=== PATIENT | female | born 1950 | race Caucasian/White ===

== ENCOUNTER 2016-09-08 13:40 | Inpatient (IN) | payer OTHER ==
[~2016-09-08] VITALS: Ht 154.9 cm; Wt 64.4 kg
--- NOTE | ~2016-09-08 | PR ---
[place], [place] PROGRESS NOTE NAME: ARACELI BOLAND UNIT #: [id number] ROOM: 314 DOCTOR: ABEL BROWN BIRTHDATE: [birth year] DOS: 09/13/2016 CHIEF COMPLAINT: "Good morning, I feel groggy. SUMMARY OF VISIT: The patient was assessed in the dining room where she was eating breakfast. Her first statement was that she feels groggy almost sedated. I asked if it felt like medication. She has told me that she could not distinguish between the 2. I did review her chart with her and I stated that we had increased her Remeron last night to help with depression and sleep issues and this might be what is going on. I offered to decrease it and she was agreeable to this. She said she felt better as far as being awake and alert on the lower dose. Denies any depression at this time. She is worried about her dogs and grandchildren. I told her that if the decrease works, I may be able to get her out as soon as tomorrow and she smiled and was agreeable with this. MENTAL STATUS: Alert and oriented to person, place, approximate time. There are some memory gaps. Mood is trending towards euthymic. Affect was appropriate. No overt signs of auditory or visual hallucinations, delusions, paranoia, lesia or hypomania. PLAN: We did bump up her Remeron last night to see if this will improve her overall disposition, but her main complaint was, I feel too groggy, too sedated, so I will back it back down to Remeron 15 mg at bedtime. We are going to maintain her Invega. She was loaded with Invega Sustenna 234 mg on September 10. Her second loading dose is due on the . We will make sure we discharge her with a script for this. We need to follow up with her case finishing machine adjuster to make her aware of the discharge plan and continuity of care. CHUCKIE BROWN CNP CM:PNTRANS [phone] ABEL BROWN 09/14/16 0004 interface
--- NOTE | ~2016-09-08 | PR ---
[place], [place] PROGRESS NOTE NAME: ARACELI BOLAND UNIT #: [id number] ROOM: 314 DOCTOR: WILDA KANG BIRTHDATE: [birth year] DOS: 09/10/2016 CHIEF COMPLAINT: "Something is not right with my medication." SUBJECTIVE: The patient was seen today. She was ambulating in the hallway. She seemed very fretful, had a lot of questions about her medication. She was asking about a medication she believed that her family doctor was going to start her on and currently, she is on Invega 6 mg by mouth. We will load her today with Invega Sustenna 234 mg in order to better manage her schizoaffective disorder. She is also requesting new housing. The social service is helping her to find something she says that she does not feel safe where she is, but she does report that while she is here, she feels safe. She is eating well and she is sleeping well. Wilda Kang NP CM:PNTRANS 1103 140 WILDA KANG 09/10/16 140 interface
--- NOTE | ~2016-09-08 | PR ---
[place], [place] PROGRESS NOTE NAME: ARACELI BOLAND UNIT #: [id number] ROOM: 314 DOCTOR: WILDA KANG BIRTHDATE: [birth year] DOS: CHIEF COMPLAINT: "Can I go home tomorrow?" SUMMARY OF THE VISIT: She was seen in her room, lying in the bed. She engaged readily in conversation and made eye contact. She says that she had a better night sleep last night and that she has a better appetite. She was kept up a little by another resident, who was a little rambunctious last night and she was frustrated by that. MENTAL STATUS EXAMINATION: As far as her mental status, she was alert and oriented. Her affect is appropriate. She was like as I said a little bit irritated over being kept awake last night. Her memory appears to be intact. PLAN: Our plan is to give her, her second loading dose of Invega Sustenna on 156 mg on 09/18/2016 and discharge to home whenever she is psychologically stable. In the meantime, we will engage her in individual and burciaga milieu. Wilda Kang NP CM:ALDAIR 3 12 WILDA KANG 09/11/161912 interface
--- NOTE | ~2016-09-08 | WRIGHTHP ---
[place], [place] PATIENT HISTORY AND PHYSICAL EXAM NAME: ARACELI BOLAND UNIT #: [id number] ROOM: 314 DOCTOR: ASHISH HANKINS MD BIRTHDATE: [birth year] DOS: 09/09/2016 INITIAL PSYCHIATRIC EVALUATION CHIEF COMPLAINT: "I'm just so afraid of those people, I'm afraid they are going to hurt me." HISTORY OF PRESENT ILLNESS: This is a 65-year-old white female, who presented to the emergency room complaining that she is very fearful and paranoid. The symptoms have been worsening over the last month. The patient states that there are multiple people in her neighborhood that she feels want to hurt her and kill her. She is uncertain why they are out to get her, but she is very certain that this is happening. The patient reports throughout the day and night, she will sometimes knock on neighbors' doors to seek assistance. She follows with Dr. Cm and Bhavna Waterman at his office and was encouraged to come to the emergency room to be further evaluated. She has a lengthy history of bipolar disorder and has been episodically noncompliant with her medications. She endorses poor sleep and appetite, anergia, anhedonia, hopeless and helpless feelings, crying spells, and inability to cope. PAST MEDICAL HISTORY: Remarkable for vitamin D deficiency, osteoporosis, GERD and the history of bipolar disorder versus schizoaffective disorder. MENTAL STATUS EXAMINATION: This morning, she is alert and oriented to person, place and time. Mood does seem to be overwhelmingly depressed with anxious overtones. She endorses significant paranoia and ideas of reference. She denies hearing voices, but does feel that she can tell people are out to get her. Memory seems relatively intact. DIAGNOSIS: Schizoaffective disorder. PLAN: I have started her on Remeron 15 mg at bedtime. She reports that she did have her best sleep in over a month last night with the use of this Remeron. I have likewise started her on Invega to address the psychotic symptoms. She did request that I put her back on her Klonopin 0.5 mg 2-3 times a day, which she had been taking for some time per her report and I will do this. We will engage her in individual and burciaga milieu activities. She does request the possibility of searching for alternative living situation, and I will have manager social services intervene here. We will return home when psychiatrically stable. [place], [place] PATIENT HISTORY AND PHYSICAL EXAM NAME: ARACELI BOLAND UNIT #: [id number] ROOM: [facility] DOCTOR: ASHISH HANKINS MD BIRTHDATE: [birth year] ASHISH HANKINS MD CM:HISPHYS:PATIENT HISTORY AND PHYSICAL EXAMINATION [phone] ASHISH HANKINS MD 09/09/16 0848 interface
--- NOTE | ~2016-09-08 | DS ---
[place], [place] DISCHARGE SUMMARY NAME: ARACELI BOLAND UNIT #: [id number] ROOM: 314 DOCTOR: ABEL BROWN BIRTHDATE: [birth year] DOS: 09/14/2016 HISTORY OF PRESENT ILLNESS: A 65-year-old female who presented to the Emergency Room complaining of fearfulness and paranoia, worsening over the last month and states that there are multiple people on her neighborhood that she feels are trying to hurt or kill her. Uncertain why they are out to get her and why certain things are happening. She reports throughout the day and night that someone would lock on her door to seek assistance. She follows with Dr. Toi Waterman in his office and was encouraged to come to the Emergency Room for further evaluation. She has a lengthy history of bipolar, episodically noncompliant with her medications. Endorses poor sleep, appetite, anergia, anhedonia, helplessness, hopeless feelings, crying spells, inability to cope. PAST MEDICAL HISTORY: Vitamin D deficiency, osteoporosis, GERD, history of bipolar versus schizoaffective disorder. HOSPITAL COURSE: We started her on Remeron 15 mg at bedtime not only to help with a little bit of her depression, but to stimulate her appetite and help her sleep. Her main complaint is poor sleep over the last month or so. We started her on Invega to address her psychotic systems, she responded well to this with a plan was to eventually switch her over to Invega Sustenna injections to make her more compliant. She requested that she be put back on her Klonopin, which she has been taking for quite a while. We went ahead and started this. She most likely will need to be weaned down on this eventually, but we started out at a low dose of 0.5 mg. The patient tolerated the p.o. Invega. It was stopped. She received her initial loading dose of Invega Sustenna of 234 mg, then her second loading dose of 156 mg IM is due on 09/16/2016 and then she will need continued maintenance dose of 117 mg q. month thereafter. MENTAL STATUS: She is alert and oriented to person, place, approximate time. There are no overt signs of auditory or visual hallucinations, delusions, paranoia, lesia or hypomania. Mood is euthymic. Affect is appropriate. DIAGNOSIS: Bipolar versus schizoaffective disorder. PLAN: The patient is being discharged to home. She is to follow up with Dr. Cm and his staff. She is currently on Remeron 15 mg at bedtime to help with depression, to stimulate her appetite, and aid in sleep. She is on Invega Sustenna. Her second loading dose is due on 09/16/2016 and then a month after that, she will have her maintenance dose of 117 mg every month. Klonopin 0.5 mg t.i.d. She is being discharged in stable condition. [place], [place] DISCHARGE SUMMARY NAME: ARACELI BOLAND UNIT #: [id number] ROOM: [facility] DOCTOR: ABEL BROWN BIRTHDATE: [birth year] CHUCKIE BROWN CNP CM:DISCHLIZ 1 33 ABEL BROWN 09/14/161933 interface
--- NOTE | ~2016-09-08 | PR ---
[place], [place] PROGRESS NOTE NAME: ARACELI BOLAND UNIT #: [id number] ROOM: 314 DOCTOR: ASHISH HANKINS MD BIRTHDATE: [birth year] DOS: 09/12/2016 CHIEF COMPLAINT: "I would like to go home soon." SUMMARY OF THE VISIT: The patient was interviewed in her room. She was sitting at the edge of her bed and engaged readily in conversation. She was fixated on going home stating that she really wanted to get home because her son has been taking care of her dogs and she is fearful that he cannot do this much longer. She did report that she is feeling slightly better and that her mood does seem to be improving and that the voices in her head seem to be lessening. She convincingly denies medication side effects. She is still though somewhat fragmented and disjointed in her thinking and derails easily from her conversation, but redirects herself well. MENTAL STATUS: She is alert and oriented with some time gaps. Mood does seem to be trending towards euthymia. Affect is more appropriate. There is no lesia or hypomania. There are no voiced auditory or visual hallucinations, delusions, or paranoia. Memory is relatively intact. PLAN: I will increase her Remeron from 15 to 22.5 mg at night to see if this will improve her overall disposition. Maintain her Invega. She was just loaded with Invega Sustenna 234 mg on September 10. She is due for her secondary loading dose here in a few days. She is to have her manager rn case come in today to visit her. I would like to get the manager rn case's input as to how close this is to the patient's baseline to determine discharge plans. We will continue to engage in individual and burciaga milieu activity with the plan to return home when stable. ASHISH HANKINS MD CM:PNTRANS 9 1 ASHISH HANKINS MD 09/12/16911 interface
[~2016-09-08 13:40] MED LIST: AMOXICILLIN500 MG PO; CIPROFLOXACIN500 MG PO; EFFEXOR XR150 M1 PO; FOSAMAX70 MG PO; KLONOPIN0.5 MG PO; MACROBID100 M1 PO; PERCOCET 325 MG1 TA5 PO; PRILOSEC20 MG PO; VICODIN 5/500 505 MG PO; VISTARIL25 M1 PO; VISTARIL25 MG PO; VITAMIN D1000 IU PO; WELLBUTRIN75 MG PO; ZYPREXA15 MG PO
[2016-09-08 13:44] VITALS: BP 130/79
[2016-09-08] MEDS ORDERED: CLARITIN10 MG PO (13:48)
[2016-09-08] MEDS ORDERED: VENLAFAXINE37.5 M1 PO (13:49)
[2016-09-08] MEDS ORDERED: OYSTER SHELL CA1 TA4 PO (13:49)
[2016-09-08] MEDS ORDERED: GOOD NEIGHBOR M25 MG PO (13:50)
[2016-09-08 14:14] LABS: BASO % 0.5 % (0.0-1.0); EOS # 0.2 10*3/uL (0.0-0.4); EOS % 1.9 % (1.0-4.0); HEMATOCRIT 41.9 % (37.0-47.0); HEMOGLOBIN 14.5 g/dl (12.0-16.0); LYMPH # 2.5 10*3/uL (1.3-4.4); LYMPH % 29.8 % (27.0-41.0); MEAN CORPUSCULAR HGB 29.8 pg (27.0-31.0); MEAN CORPUSCULAR HGB CONC 34.6 g/dl (33.0-37.0); MEAN PLATELET VOLUME 10.7 fl (9.6-12.3); MONO # 0.7 10*3/uL (0.1-1.0); MONO % 8.3 % (3.0-9.0); NEUT # 4.9 10*3/uL (2.3-7.9); NEUT % 59.3 % (47.0-73.0); PLATELET COUNT AUTOMATED 275 10*3/uL (130-400); RED BLOOD COUNT 4.87 10*6/uL (4.10-5.10); RED CELL DISTRI WIDTH 13.5 % (0-14.5); WHITE BLOOD COUNT 8.3 10*3/uL (4.8-10.8)
[2016-09-08 14:31] LABS: ALBUMIN 4.1 gm/dl (3.1-4.5); ALKALINE PHOSPHATASE 96 U/L (45-117); BILIRUBIN, TOTAL 0.4 mg/dl (0.2-1.0); BUN 8 mg/dl (7-24); CARBON DIOXIDE 27 mmol/L (21-32); CHLORIDE 107 mmol/L (98-107); EST GLOM FILT AFRICAN AMERICAN > 60 ml/min; GLUCOSE 102 mg/dL (65-99); POTASSIUM 3.7 mmol/L (3.5-5.1); SGOT/AST 19 IU/L (3-35); SGPT/ALT 28 U/L (12-78); SODIUM 140 mmol/L (136-145); TOTAL PROTEIN 7.7 gm/dL (6.4-8.2)
[2016-09-08 15:07] LABS: BILIRUBIN NEGATIVE (NEGATIVE); BLOOD NEGATIVE (NEGATIVE); CLARITY CLEAR (CLEAR); COLOR YELLOW (YELLOW); GLUCOSE NEGATIVE (NEGATIVE); KETONE TRACE (NEGATIVE); LEUKO ESTERASE 2+ (NEGATIVE); NITRITE NEGATIVE (NEGATIVE); PH 5.5 (5.0-9.0); PROTEIN NEGATIVE (NEGATIVE); SPECIFIC GRAVITY <= 1.005 (1.005-1.030); UROBILINOGEN 0.2 E.U./dl (0.2-1.0)
[2016-09-08 15:14] LABS: BACTERIA TRACE; MUCOUS TRACE
[2016-09-08 15:15] LABS: URINE REFLEX COMMENT YES (NO)
[2016-09-08 15:18] LABS: URINE AMPHETAMINES < 1000 (1000ng/ml); URINE BARBITURATES < 200 (200ng/ml); URINE COCAINE < 300 (300ng/ml)
[2016-09-08] MEDS ORDERED: TRAZODONE100 MG PO (18:30)
[2016-09-08] MEDS ORDERED: VRAYLAR3 MG PO (18:31)
[2016-09-08 19:52] VITALS: BP 110/50
[2016-09-08 20:05] LABS: FOLIC ACID 15.74 ng/mL (>5.38); VITAMIN D, 25-HYDROXY 24.9 ng/mL (30-100)
[2016-09-08] MEDS ORDERED: MONTELUKAST SOD10 MG PO (20:05)
[2016-09-08] MEDS ORDERED: INVEGA SUSTENN234 MG IM (20:06)
[2016-09-09 07:33] LABS: HEMOGLOBIN A1c 5.5 % (4.8-5.6)
[2016-09-09 07:49] VITALS: BP 104/65
[2016-09-09 19:35] VITALS: BP 126/80
[2016-09-10 19:14] VITALS: BP 107/71
[2016-09-11 07:50] VITALS: BP 109/66
[2016-09-11 19:30] VITALS: BP 105/60
[2016-09-12 08:44] VITALS: BP 120/80
[2016-09-12 20:00] VITALS: BP 109/66
[2016-09-13 08:01] VITALS: BP 131/84
[2016-09-13 20:00] VITALS: BP 120/78
[2016-09-14] MEDS ORDERED: CLONAZEPAM0.5 M2 PO (07:58)
[2016-09-14] MEDS ORDERED: MIRTAZAPINE15 M2 PO (07:58)
[2016-09-14] MEDS ORDERED: INVEGA SUSTENN156 MG IM (07:58)
[2016-09-14] MEDS ORDERED: VITAMIN D5000 I3 PO (07:58)
[2016-09-14 08:24] VITALS: BP 120/70
== END 2016-09-14 11:50 | disposition home or self-care (01) | DRG 885 ==
LOC: ED 13:40 → 3N 16:14
PROVIDERS: Hospitalist; Psychiatry & Neurology Psychiatry; Student in an Organized Health Care Education/Training Program
DX: F25.0 Schizoaffective disorder, bipolar type (principal); N30.00 Acute cystitis without hematuria; K21.9 Gastro-esophageal reflux disease without esophagitis; M81.0 Age-related osteoporosis without current pathological fracture; E55.9 Vitamin D deficiency, unspecified; Z90.49 Acquired absence of other specified parts of digestive tract; Z90.710 Acquired absence of both cervix and uterus; Z88.6 Allergy status to analgesic agent; Z88.2 Allergy status to sulfonamides; Z80.8 Family history of malignant neoplasm of other organs or systems; Z82.5 Family history of asthma and other chronic lower respiratory diseases; Z79.899 Other long term (current) drug therapy

== ENCOUNTER 2016-12-08 13:06 | Inpatient (IN) | payer MEDICAID ==
[~2016-12-08] VITALS: Ht 154.9 cm; Wt 69.6 kg
--- NOTE | ~2016-12-08 | PR ---
[place], [place] PROGRESS NOTE [id number] UNIT #: [id number] ROOM: 310 DOCTOR: Mikayla REINOSO,LAURO BIRTHDATE: [birth year] DOS: 12/10/2016 SUBJECTIVE: The patient seen and spoke with the staff. Per staff, the patient is still focused on medication, slept well. She was started on antibiotic by her primary care physician for UTI. The patient was pleasant and cooperative. She was in the room with the phone talking with her family. She said that she is doing good and feeling better. She is happy that she slept well last night. She did not express any problems or concerns. She is taking her medication regularly and did not have any side effect from the medication. MENTAL STATUS EXAMINATION: The patient was pleasant, cooperative. Described her mood as "okay." Affect, mood congruent. Thought process goal directed. No flight of ideas or loosening of association. She denied auditory or visual hallucination. No delusion or paranoia noted. She denied suicidal ideation, intent or plan. She also denied any homicidal ideation, intent or plan. Insight and judgment fair. ASSESSMENT: Schizoaffective disorder. PLAN: 1. Continue current medication and care. 2. Continue redirection. 3. Supportive care. LAURO REINOSO MD CM:PNTRANS [id number] Mikayla REINOSO 12/11/16 0141 interface
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
--- NOTE | ~2016-12-08 | PR ---
[place], [place] PROGRESS NOTE NAME: [id number] UNIT #: [id number] ROOM: 310 DOCTOR: Mikayla REINOSO,LAURO BIRTHDATE: [birth year] DOS: 12/11/2016 SUBJECTIVE: The patient seen and spoke with the staff. Per staff, the patient is doing well. No behavioral problems or issues, but comes to the station and asks for medication at times. The patient was pleasant and cooperative. She was in her room. She said that she is feeling better, asking when she can go home. Denied any problems or concerns. She asked me that since she is not the Klonopin if she will have any withdrawal symptoms or not. She reports good sleep and appetite. MENTAL STATUS EXAMINATION: The patient was pleasant and cooperative. Described her mood as "good." Affect, mood congruent. Thought process goal directed. No flight of ideas, loosening of association. She denied auditory or visual hallucination. No delusion or paranoia noted. She denies suicidal ideation, intent or plan. She also denied homicidal ideation, intent or plan. Insight and judgment fair. ASSESSMENT: Schizoaffective disorder. PLAN: 1. Continue current medication and care. 2. Continue redirection. 3. Encourage activity and groups. LAURO REINOSO MD CM:PNANA [id number] 1029 Mikayla REINOSO 12/11/16 1029 interface
--- NOTE | ~2016-12-08 | PR ---
[place], [place] PROGRESS NOTE NAME: ARACELI BOLAND UNIT #: [id number] ROOM: 310 DOCTOR: MIR FLANAGAN MD BIRTHDATE: [birth year] DOS: 12/11/2016 SUBJECTIVE: The patient has been admitted to the hospital with acute psychosis. She is feeling better today and she is comfortable. On investigation, she was found to have urinary tract infection and has been started on Macrobid 100 mg twice daily. The patient denies any pain. No fever, no chills. No nausea, no vomiting. OBJECTIVE: VITAL SIGNS: Her blood pressure today is 119/74, pulse 85, respirations 18, temperature 98.1. CHEST: Clear. HEART: Regular. ABDOMEN: Soft. No tenderness. The patient is ambulating and feeling fairly stable. MIR FLANAGAN MD CM:PNTRANS 1205 1317 MIR FLANAGAN MD 12/11/16 1317 interface
--- NOTE | ~2016-12-08 | PR ---
[place], [place] PROGRESS NOTE NAME: ARACELI BOLAND UNIT #: [id number] ROOM: 310 DOCTOR: MIR FLANAGAN MD BIRTHDATE: [birth year] DOS: 12/10/2016 SUBJECTIVE: The patient has been admitted to the psych unit with acute psychosis and we are following her for medical consultation. Her comprehensive profile is normal. Her C-reactive protein and troponin level is normal. Her CBC is normal. Her urine examination showed 2-4 wbc, 1+ leuk esterase indicating some urinary tract infection. The patient has past history of recurrent urinary tract infection and she has history of GERD syndrome, osteoporosis, vitamin D deficiency, depression and bipolar disorder. OBJECTIVE: VITAL SIGNS: Her blood pressure today is 116/78, pulse is 57, respiratory rate 20, temperature 98.4. CHEST: Clear. HEART: Regular. ABDOMEN: Soft. Her CT scan of the head was showing no intracranial bleed or any evidence of stroke or mass lesion. Chest x-ray is normal. MIR FLANAGAN MD CM:PNTRANS 0726 1005 MIR FLANAGAN MD 12/10/16 1005 interface
--- NOTE | ~2016-12-08 | PR ---
[place], [place] PROGRESS NOTE NAME: ARACELI BOLAND UNIT #: [id number] ROOM: 310 DOCTOR: MIR FLANAGAN MD BIRTHDATE: [birth year] DOS: 12/13/2016 SUBJECTIVE: The patient is admitted to Psych Unit with acute psychosis. She is having urinary tract infection, which is healing very satisfactorily. She denies any urinary symptoms or nausea. There is no pain in the abdomen. No nausea, no vomiting, no fever or chills. She is improving very good from medical point of view. OBJECTIVE: VITAL SIGNS: Her blood 117/80, pulse 90, respirations 18, temperature 97.9. MIR FLANAGAN MD CM:PNTRANS 0929 1036 MIR FLANAGAN MD 12/13/16 1535 interface
--- NOTE | ~2016-12-08 | PR ---
[place], [place] PROGRESS NOTE NAME: ARACELI BOLAND UNIT #: [id number] ROOM: 310 DOCTOR: MIR FLANAGAN MD BIRTHDATE: [birth year] DOS: 12/12/2016 The patient has been admitted through the psych floor with acute psychosis and depression. The patient was having urinary tract infection and is being treated for that and she is feeling much better now. She denies any pain in the abdomen. No nausea, no vomiting. Her blood culture is normal. Her urine culture did not grow any bacteria. Her blood pressure is 118/82, pulse 96, respirations 18, temperature 98.2. MIR FLANAGAN MD CM:PNTRANS 1208 1506 MIR FLANAGAN MD 12/12/16 1535 interface
--- NOTE | ~2016-12-08 | DS ---
[place], [place] DISCHARGE SUMMARY NAME: ARACELI BOLAND UNIT #: [id number] ROOM: 310 DOCTOR: ASHISH HANKINS MD BIRTHDATE: [birth year] DOS: 12/14/2016 CHIEF COMPLAINT: "I am just so anxious and depressed. I cannot go on like this." HISTORY OF PRESENT ILLNESS: This is a 66-year-old white female known to me from previous admissions here to the [facility]. She was admitted due to worsening depression with anxiety. The patient apparently had become increasingly more depressed with poor sleep and appetite, anergia, anhedonia, hopeless, helpless feelings, crying spells, and inability to cope. Additionally, her anxiety level while at home had been peaking, and she was very fearful of being by herself. She did call EMS, and they did bring her to the Emergency Room at [facility], where upon evaluation, the patient was deemed to be in such a state of depression that she represented a significant risk of harm to self. She was admitted to rule out organic factors and to stabilize on medication with the ultimate plan to return home when psychiatrically stable. PAST MEDICAL HISTORY: Remarkable for GERD, osteoporosis, vitamin D deficiency. SUMMARY OF HOSPITAL COURSE: The patient was admitted to the unit where she had her Invega Sustenna continued. Her Loxitane, however, was discontinued due to increased side effects from it, and instead Dr. Dumont started her on Seroquel 25 mg in the morning and 50 mg at night. Additionally, he discontinued her Klonopin because he felt that it was making her disoriented and confused and was not effectively dealing with her anxiety. He believed that the Seroquel would have an antianxiety component as well as helping augment the effectiveness of the Invega. She tolerated the Seroquel well, and it did give her positive benefits. The patient had been taking Remeron while at home at a dose of [address] Dumont increased this to 45 mg at bedtime in an effort to lessen the possibility of daytime somnolence. Again, she tolerated this medication adjustment well and gradually improved over the next several days. She voiced positive plans for the future and a readiness to return home. She convincingly denied suicidal thoughts, homicidal thoughts or any self-injurious thoughts as well as denying any medication side effects. The patient was discharged to return home on 12/14/2016. MENTAL STATUS AT DISCHARGE: The patient is alert and oriented to person, place, and time. Mood is fairly euthymic. Affect appropriate. Speech rate and pattern is within normal limits. There are no symptoms suggestive of hypomania or lesia. Likewise, there are no auditory or visual hallucinations. No delusions, no paranoia. Short, intermediate, and long-term memory are fully intact. DISCHARGE DIAGNOSIS: Schizoaffective disorder. PLAN: All of her prescriptions have been Escribed to [facility] in [place]. She will follow up at [facility]. She is due to receive her secondary loading dose of Invega Sustenna on 12/27/2016. [place], [place] DISCHARGE SUMMARY NAME: ARACELI BOLAND UNIT #: [id number] ROOM: 310 DOCTOR: ASHISH HANKINS MD BIRTHDATE: [birth year] ASHISH HANKINS MD CM:DISCHARG 0759 0840 ASHISH HANKINS MD 12/14/16 0840 interface
[~2016-12-08 13:06] MED LIST changes: +CLARITIN10 MG PO; +CLONAZEPAM0.5 M2 PO; +GOOD NEIGHBOR M25 MG PO; +INVEGA SUSTENN156 MG IM; +INVEGA SUSTENN234 MG IM; +MIRTAZAPINE15 M2 PO; +MONTELUKAST SOD10 MG PO; +OYSTER SHELL CA1 TA4 PO; +PRILOSEC20 M1 PO; -PRILOSEC20 MG PO; +TRAZODONE100 MG PO; +VENLAFAXINE37.5 M1 PO; +VITAMIN D5000 I3 PO; +VRAYLAR3 MG PO
[2016-12-08 13:20] VITALS: BP 129/80
[2016-12-08 13:45] LABS: BASO % 0.5 % (0.0-1.0); EOS # 0.1 10*3/uL (0.0-0.4); EOS % 0.7 % (1.0-4.0); HEMATOCRIT 39.2 % (37.0-47.0); HEMOGLOBIN 13.5 g/dl (12.0-16.0); LYMPH # 2.1 10*3/uL (1.3-4.4); LYMPH % 24.8 % (27.0-41.0); MEAN CELL VOLUME 87.7 fl (81.0-99.0); MEAN CORPUSCULAR HGB 30.2 pg (27.0-31.0); MEAN CORPUSCULAR HGB CONC 34.4 g/dl (33.0-37.0); MEAN PLATELET VOLUME 10.1 fl (9.6-12.3); MONO # 0.5 10*3/uL (0.1-1.0); MONO % 6.1 % (3.0-9.0); NEUT # 5.8 10*3/uL (2.3-7.9); NEUT % 67.7 % (47.0-73.0); PLATELET COUNT AUTOMATED 264 10*3/uL (130-400); RED BLOOD COUNT 4.47 10*6/uL (4.10-5.10); RED CELL DISTRI WIDTH 12.7 % (0-14.5); WHITE BLOOD COUNT 8.6 10*3/uL (4.8-10.8)
[2016-12-08 13:53] LABS: ACT PARTIAL THROMBO TIME 24.1 SECONDS (20.8-31.5); INTERNATIONAL NORM RATIO 0.9 (2.0-3.5)
[2016-12-08 13:59] VITALS: BP 130/73
[2016-12-08 14:00] LABS: ALBUMIN 3.9 gm/dl (3.1-4.5); ALKALINE PHOSPHATASE 100 U/L (45-117); BUN 10 mg/dl (7-24); CHLORIDE 103 mmol/L (98-107); CKMB 1.9 ng/ml (0.5-3.6); CPK 144 U/L (26-192); CREATININE 0.86 mg/dL (0.55-1.02); LIPASE 130 U/L (73-393); POTASSIUM 3.8 mmol/L (3.5-5.1); SGOT/AST 27 IU/L (3-35); SGPT/ALT 41 U/L (12-78); SODIUM 137 mmol/L (136-145); TOTAL PROTEIN 7.7 gm/dL (6.4-8.2); TROPONIN I < 0.015 ng/ml (<0.045)
[2016-12-08 14:09] LABS: BILIRUBIN NEGATIVE (NEGATIVE); BLOOD NEGATIVE (NEGATIVE); CLARITY CLEAR (CLEAR); COLOR YELLOW (YELLOW); GLUCOSE NEGATIVE (NEGATIVE); KETONE NEGATIVE (NEGATIVE); LEUKO ESTERASE 1+ (NEGATIVE); NITRITE NEGATIVE (NEGATIVE); PH 5.5 (5.0-9.0); UROBILINOGEN 0.2 E.U./dl (0.2-1.0)
[2016-12-08 14:22] LABS: BACTERIA TRACE
[2016-12-08 17:31] VITALS: BP 118/86
[2016-12-08] MEDS ORDERED: ATIVAN0.5 MG PO ×2 (19:50→19:52)
[2016-12-08] MEDS ORDERED: VITAMIN D5000 UNI1 PO (19:58)
[2016-12-08] MEDS ORDERED: LOXAPINE10 MG PO (20:00)
[2016-12-08] MEDS ORDERED: MIRTAZAPINE30 M2 PO (20:02)
[2016-12-08] MEDS ORDERED: KLONOPIN0.5 MG PO (20:05)
[2016-12-08 21:30] VITALS: BP 120/83
[2016-12-08 22:00] VITALS: BP 120/83
[2016-12-09 08:06] VITALS: BP 118/66
[2016-12-09] MEDS ORDERED: INVEGA SUSTENN234 MG IM (12:54)
[2016-12-09] MEDS ORDERED: OYSTER SHELL C1 EAC2 PO (19:12)
[2016-12-09 20:07] VITALS: BP 116/70
[2016-12-10 08:04] VITALS: BP 113/76
[2016-12-10 19:54] VITALS: BP 123/75
[2016-12-11 07:56] VITALS: BP 119/74
[2016-12-11 19:48] VITALS: BP 123/76
[2016-12-12 07:59] VITALS: BP 118/82
[2016-12-12 19:59] VITALS: BP 127/74
[2016-12-13 09:21] VITALS: BP 117/80
[2016-12-13 20:00] VITALS: BP 116/82
[2016-12-14] MEDS ORDERED: QUETIAPINE FUMA50 M1 PO (07:44)
[2016-12-14] MEDS ORDERED: QUETIAPINE FUMA25 MG PO (07:44)
[2016-12-14] MEDS ORDERED: MIRTAZAPINE45 MG PO (07:44)
[2016-12-14 07:49] VITALS: BP 122/78
[2016-12-14] MEDS ORDERED: INVEGA SUSTENN156 MG IM (07:54)
[2016-12-14] MEDS ORDERED: MACROBID100 M1 PO (10:29)
== END 2016-12-14 11:40 | disposition home or self-care (01) | DRG 885 ==
LOC: ED 13:06 → EDHOLD 18:38 → 3N 18:38
PROVIDERS: Emergency Medicine; ADMIT Psychiatry & Neurology Psychiatry
DX: F25.9 Schizoaffective disorder, unspecified (principal); F23 Brief psychotic disorder; K25.9 Gastric ulcer, unspecified as acute or chronic, without hemorrhage or perforation; N39.0 Urinary tract infection, site not specified; K21.9 Gastro-esophageal reflux disease without esophagitis; M81.0 Age-related osteoporosis without current pathological fracture; F41.9 Anxiety disorder, unspecified; R73.9 Hyperglycemia, unspecified; E66.3 Overweight; F31.9 Bipolar disorder, unspecified; E55.9 Vitamin D deficiency, unspecified; Z90.710 Acquired absence of both cervix and uterus; Z90.49 Acquired absence of other specified parts of digestive tract; Z80.9 Family history of malignant neoplasm, unspecified; Z83.6 Family history of other diseases of the respiratory system; Z88.6 Allergy status to analgesic agent; Z88.2 Allergy status to sulfonamides; Z79.899 Other long term (current) drug therapy; Z68.28 Body mass index [BMI] 28.0-28.9, adult

== ENCOUNTER → 2017-07-05 | Outpatient (CLI) | payer MEDICAID ==
[~2017-07-05] MED LIST changes: +ATIVAN0.5 MG PO; +LOXAPINE10 MG PO; +MIRTAZAPINE30 M2 PO; +MIRTAZAPINE45 MG PO; +OYSTER SHELL C1 EAC2 PO; +QUETIAPINE FUMA25 MG PO; +QUETIAPINE FUMA50 M1 PO; +VITAMIN D5000 UNI1 PO
== END | disposition home or self-care (01) ==
LOC: RAD 11:30
DX: Z13.820 Encounter for screening for osteoporosis (principal); M81.0 Age-related osteoporosis without current pathological fracture; N95.9 Unspecified menopausal and perimenopausal disorder

== ENCOUNTER 2018-01-31 10:04 | Inpatient (IN) | payer MEDICAID ==
[~2018-01-31] VITALS: Ht 154.9 cm; Wt 69.9 kg
--- NOTE | ~2018-01-31 | PR ---
[place], [place] PROGRESS NOTE NAME: ARACELI BOLAND UNIT #: [id number] ROOM: 314 DOCTOR: ASHISH HANKINS MD BIRTHDATE: [birth year] DOS: 02/08/2018 CHIEF COMPLAINT: "That new medicine really works, I feel better." SUMMARY OF THE VISIT: The patient was interviewed as she was engaging in activity in the dining area. She smiled as I approached. She looked clear and much more goal directed in her speech. The anxiety that was present so much the last several days seems to have dissipated. She was very positive in stating that she feels much better with the new medication that has been added, much clear and no longer sedate or dizzy. She reports no side effects from the new medication. MENTAL STATUS: She is alert and oriented. Mood does seem to be strongly trending towards euthymia now. Affect is much more appropriate. There is no lesia or hypomania. There are no gross psychotic symptoms. Short term memory has some mild gaps, otherwise she is intact. PLAN: I will maintain the dose of Stelazine at 1.25 mg twice daily, monitor and support, engage in individual and burciaga milieu activity, returning to the least restrictive environment when psychiatrically stable. ASHISH HANKINS MD CM:PNTRANS [id number] ASHISH HANKINS MD 02/08/18 1220 interface
--- NOTE | ~2018-01-31 | CON ---
[place], [place] REPORT OF CONSULTATION NAME: ARACELI BOLAND UNIT #: [id number] ROOM: 314 DOCTOR: JANETTE ANNE MD BIRTHDATE: [birth year] DOS: 02/01/2018 CHIEF COMPLAINT: The patient was admitted under Dr. Darian Gambino for anxiety and confusion. We were consulted for medical management. HISTORY OF PRESENT ILLNESS: This is a 67-year-old patient who came to ER with chief complaint of worsening of depression, confusion and anxiety, which was going on for last 3-4 months during which time she was disoriented, confused and had no energy. She has lost 10 pounds and has not been eating much. She was also found to be noncompliant with psychotropic medication. The patient was admitted under Dr. Gambino to stabilize on medications. I was consulted today and I saw and examined the patient. The patient was walking in the hallway and when I visited the psych unit, the patient is not having any chest pain or shortness of breath. No other nausea, vomiting, no diarrhea. The patient was seen. The nurse did ask me about starting propranolol, her heart rate was checked and it was 101, so her home medication propranolol was started. She does have a history of UTI, but urine culture was negative so far. Urine nitrite is negative, we will wait for the urine culture report before starting any antibiotic. PAST MEDICAL HISTORY: Significant for: 1. History of bipolar disorder. 2. Gastroesophageal reflux disease and gastric ulcer. 3. Hepatitis B. 4. Osteoporosis. 5. Schizophrenia. 6. Vitamin D deficiency. 7. Allergic rhinitis. SOCIAL HISTORY: No alcohol, no illicit drug use. ALLERGIES: THE PATIENT IS ALLERGIC TO ASPIRIN AND SULFA. FAMILY HISTORY: Mother at 49 of ovarian cancer. Father at 73 of emphysema of the lungs. HOME MEDICATIONS: Prilosec 20 mg daily, Claritin 10 mg daily, Singulair 10 mg daily, vitamin D3 5000 units daily, calcium plus vitamin D 3 times a day, propranolol 10 mg twice a day, Fosamax 70 mg weekly, clonidine 0.1 mg b.i.d. The patient right now is on Seroquel 50 mg at bedtime and Invega. REVIEW OF SYSTEMS: GENERAL: Lost 10 pounds in 3-4 months. HEENT: Denies any vision change, throat pain or dysphagia. CARDIOVASCULAR: Denies any chest pain, palpitations. RESPIRATORY: No shortness of breath. Denies cough or sputum production. GENITOURINARY: Denies dysuria. Denies any blood in the urine, any increased [place], [place] REPORT OF CONSULTATION NAME: ARACELI BOLAND UNIT #: [id number] ROOM: 314 DOCTOR: JANETTE ANNE MD BIRTHDATE: [birth year] frequency. She did tell us that she had a UTI diagnosed at Dr. Narayan's office. NEUROLOGIC: She is confused, but denies hearing any voices. PSYCHIATRY: Reports depression, anxiety and confusion. SKIN: No skin lesions, no ulcers. PHYSICAL EXAMINATION: VITAL SIGNS: Blood pressure is 98.1, pulse is 101, respiratory rate 16, blood pressure ranging from 114/68-120/84. GENERAL: She is awake, alert, and responsive, cooperative. HEENT: Normocephalic, atraumatic. Eyes: Pupils equal, round, reactive to light. No lesions. ENT: No discharge noted. NECK: No JVD, no lymphadenopathy. Supple. CARDIOVASCULAR: Regular rate and rhythm. No murmur, gallop or rub. ABDOMEN: Soft, nontender. Bowel sounds positive. LUNGS: No respiratory distress, no rales, no rhonchi. EXTREMITIES: No clubbing, cyanosis or edema. NEUROLOGIC: Grossly intact. No focal deficit noted. PSYCHOLOGICAL: The patient is depressed as already noted. SKIN: No rashes. LABORATORY DATA: Sodium 136, potassium 3.6, chloride 101, carbon dioxide 29, BUN 10, creatinine 1, estimated GFR is 55. Glucose 94, calcium 8.8, magnesium 2.1, AST 15, ALT 21. WBC 6.9, hemoglobin 13.2, hematocrit is 39.2. ASSESSMENT: 1. Schizoaffective disorder. Dr. Gambino on the case. 2. Asymptomatic bacteriuria. Leukocyte, nitrite is negative. Awaiting for culture. 3. The patient had bradycardia, but now patient's heart rate was 101, propranolol 10 mg b.i.d. was restarted. 4. Major depression, bipolar disorder, chronic kidney disease. We will establish the patient with Nephrology. 5. Gastroesophageal disease. 6. Osteoporosis. The patient on Fosamax and vitamin D. Continue vitamin D. She is slightly overweight. Diet and exercise. 7. Seasonal allergies. Continue Singulair. TREATMENT AND PLAN: 1. We will continue home medications as dictated above. One time dose of fosfomycin was already given and we will wait for urine culture. 2. Clonidine will be kept on hold as she has not taken it for 3 months. Cranial nerve assessment exam was normal documented already by resident Nidhi Kuhn. [place], [place] REPORT OF CONSULTATION NAME: KYA,ARACELI Daja UNIT #: [id number] ROOM: [facility] DOCTOR: JANETTE ANNE MD BIRTHDATE: [birth year] JANETTE ANNE MD CM:CONSTR:REPORT OF CONSULTATION 1239 02/21/18 0720 interface
--- NOTE | ~2018-01-31 | PR ---
[place], [place] PROGRESS NOTE NAME: ARACELI BOLAND UNIT #: [id number] ROOM: 314 DOCTOR: ASHISH HANKINS MD BIRTHDATE: [birth year] DOS: 02/07/2018 CHIEF COMPLAINT: "I am just so anxious and I am dizzy." SUMMARY OF THE VISIT: The patient was interviewed in the group therapy room. She complained of feeling increasingly anxious throughout the day and wondered if it was because she is going through Klonopin withdrawal. She reported to me that she had been on Klonopin for many, many years and has now been without it for about 5 or 6 days. She also notes increased dizziness and lightheadedness. This may also be because of the Seroquel, which is on board. Otherwise, she did not appear as confused as she had been on previous examinations. MENTAL STATUS: She is alert and oriented to person, place, very close to time. Mood does seem to be somewhat anxious and depressed. There is no overt hypomania or lesia. There is no overt psychotic symptoms noted. Short term memory does have some gaps. PLAN: I will discontinue Seroquel in lieu of Stelazine 1 mg twice daily, again as a non-addictive antianxiety agent. I will have nursing monitor her vital signs more closely over the next 24-48 hours to ascertain whether or not she is truly going through any benzodiazepine withdrawal or not. We will engage in individual and burciaga milieu activity, returning to the least restrictive environment when psychiatrically stable. ASHISH HANKINS MD CM:PNTRANS [id number] ASHISH HANKINS MD 02/07/18 1553 interface
--- NOTE | ~2018-01-31 | PR ---
[place], [place] PROGRESS NOTE NAME: ARACELI BOLAND UNIT #: [id number] ROOM: 314 DOCTOR: LAURO REINOSO MD BIRTHDATE: [birth year] DOS: 02/04/2018 SUBJECTIVE: The patient was seen and spoke with the staff. Per staff, the patient remains somatic, compliant with his medication. No behavior problems or issues, but today, she told the staff that she is having trouble with "reality." The patient was pleasant and cooperative. She was in the day area. She reports doing "okay." She also told me that she is having problem with reality, but she is alert, oriented to place and person and month. She denied any side effect from the medication. MENTAL STATUS EXAMINATION: The patient was pleasant and cooperative. Described her mood as "okay." Affect, mood congruent. She denied auditory or visual hallucination. No delusion or paranoia noted. She denied suicidal ideation, intent or plan. She also denied homicidal ideation, intent or plan. PLAN: 1. Continue current medication and care. 2. Continue redirection. 3. Supportive care. LAURO REINOSO MD CM:PNANA [id number] LAURO REINOSO MD 02/05/18 0528 interface
--- NOTE | ~2018-01-31 | PR ---
[place], [place] PROGRESS NOTE NAME: ARACELI BOLAND UNIT #: [id number] ROOM: 314 DOCTOR: MIR FLANAGAN MD BIRTHDATE: [birth year] DOS: SUBJECTIVE: The patient has been admitted to the Senior Psych Unit with schizoaffective disorder with and depression. The patient also has urinary tract infection with bradycardia, depression, chronic kidney failure, GERD syndrome, osteoporosis, vitamin D deficiency, anxiety, seasonal allergy. The patient is right now feeling better. Her anxiety and depression is better. Her schizophrenia is under control with the new medication. OBJECTIVE: CHEST: Clear. HEART: Regular. ABDOMEN: Soft. VITAL SIGNS: Blood pressure 108/72, pulse is 90, respirations 18, temperature 99.1. MIR FLANAGAN MD CM:PNTRANS [id number] MIR FLANAGAN MD 02/10/18 1759 interface
--- NOTE | ~2018-01-31 | PR ---
[place], [place] PROGRESS NOTE NAME: ARACELI BOLAND UNIT #: [id number] ROOM: 314 DOCTOR: ASHISH HANKINS MD BIRTHDATE: [birth year] DOS: 02/06/2018 CHIEF COMPLAINT: "I still feel confused and anxious." SUMMARY OF THE VISIT: The patient was interviewed in the dining area and later in the hallway. She continues to have that perplexed and bewildered book and continues to complain of ongoing anxiety and confusion. Of note, the psychologist in to was assess her and are still awaiting PT, OT evaluation as to her ability to function independently. Staff reported that the daughter has stated that the patient has done best when she was on Invega Sustenna, but the patient currently is refusing to do so. At this point, she is compliant with the Seroquel 25 mg t.i.d. I will maintain this dose at the present time. MENTAL STATUS: She is alert and oriented to person, place with gaps in time. Mood does seem to be rather anxious and fretful. There is no lesia, hypomania. It is unclear if some of her confusion is thought blocking and related to ongoing psychotic symptoms. Memory does have gaps. PLAN: I will renew her p.r.n. Ativan, continue low dose Seroquel, consider restarting Invega Sustenna. ASHISH HANKINS MD CM:PNTRANS [id number] ASHISH HANKINS MD 02/06/18 1249 interface
--- NOTE | ~2018-01-31 | PR ---
[place], [place] PROGRESS NOTE NAME: ARACELI BOLAND UNIT #: [id number] ROOM: 314 DOCTOR: MIR FLANAGAN MD BIRTHDATE: [birth year] DOS: SUBJECTIVE: The patient has been admitted to the Psych Senior Unit with schizophrenia with depression and acute anxiety. She is also having history of GERD syndrome and repeated urinary tract infection. At present, the patient is feeling very good. She is denying any chest pain. No difficulty breathing. No nausea. No vomiting. No constipation or diarrhea. Eating well, ambulating very well. OBJECTIVE: CHEST: Clear. HEART: Regular. ABDOMEN: Soft. VITAL SIGNS: Her blood pressure 115/70, pulse is 75, respirations 18, temperature 97.8. ASSESSMENT: From medical point of view, the patient is very stable. MIR FLANAGAN MD CM:PNTRANS [phone] MIR FLANAGAN MD 02/11/181850 interface
--- NOTE | ~2018-01-31 | WRIGHTHP ---
[place], [place] PATIENT HISTORY AND PHYSICAL EXAM NAME: ARACELI BOLAND UNIT #: [id number] ROOM: 314 DOCTOR: ASHISH HANKINS MD BIRTHDATE: [birth year] DOS: 02/01/2018 CHIEF COMPLAINT: "I am just so anxious and confused." HISTORY OF PRESENT ILLNESS: This is a 67-year-old female known to me from previous admissions here to the [facility], who presented to the Emergency Room with a chief complaint of worsening depression, confusion and anxiety. The patient reports that this has been going on for the last 3-4 months, during which period of time, she has noted she has been disoriented, confused, has no energy. She has not been eating and has lost 10 pounds during this period of time. Of note, the patient has been episodically noncompliant with her psychotropic medications: A call to the pharmacy reveals that the prescriptions have been sent there, but she has not picked up her psychotropic medications for some time. The patient is admitted now to rule out any organic factors, to stabilize on medication, to engage in individual and burciaga milieu activity and to determine the least restrictive environment to which she could be returned. PAST MEDICAL HISTORY: Remarkable for a lengthy history of bipolar disorder, gastric ulcer, GERD, hepatitis B. osteoporosis, schizophrenia, allergic rhinitis and vitamin D deficiency. SOCIAL HISTORY: She does not drink alcohol, use illicit drugs or smoke cigarettes. FAMILY HISTORY: Remarkable for several types of cancer, both lung and ovarian as well as diabetes. ALLERGIES: The patient lists allergies to ASPIRIN and SULFA. STRENGTHS: Ambulatory, good verbal skills. WEAKNESSES: Chronic long-term psychiatric issues and poor coping skills. MENTAL STATUS: She is alert and oriented with significant time gaps. Her speech rate and pattern is somewhat slowed and deliberate. There is some thought processing difficulty. She endorses significant depression and her mood and affect do seem to be rather depressed and blunted. There is no lesia or hypomania. I did not elicit any specific psychotic symptoms at the present time. There is some mood lability reported. Memory does have significant gaps. DIAGNOSES: Schizoaffective disorder versus bipolar disorder with psychotic features. PLAN: I will discontinue her Latuda in lieu of Invega 6 mg a day. The patient reports that this worked better for her as far as helping her mood and she is fearful of the Abilify and does not want to be back on Abilify or Aristada. The patient did request that I place her back on Klonopin; however, I did educate her regarding the potential for Klonopin to worsen confusion. Instead of the Klonopin, I will treat her with Vistaril 50 mg t.i.d. in an attempt to minimize the use of addictive agents. We will attempt to engage her in individual and [place], [place] PATIENT HISTORY AND PHYSICAL EXAM NAME: ARACELI BOLAND UNIT #: [id number] ROOM: [facility] DOCTOR: ASHISH HANKINS MD BIRTHDATE: [birth year] burciaga milieu activity, determining then the least restrictive environment to which she could be returned. ASHISH HANKINS MD CM:HISPHYS:PATIENT HISTORY AND PHYSICAL EXAMINATION [id number] ASHISH HANKINS MD 02/01/18 1020 interface
--- NOTE | ~2018-01-31 | CON ---
[place], [place] REPORT OF CONSULTATION NAME: ARACELI BOLAND UNIT #: [id number] ROOM: 314 DOCTOR: ARSEN, PHD NOEL BIRTHDATE: [birth year] DOS: 02/06/2018 HISTORY OF PRESENT ILLNESS: The patient is a 67-year-old female with a history of psychosis who was referred by Dr. Gambino for competency evaluation. At the present time, the patient is receiving care on the [facility] at [facility]. The patient was experiencing increased confusion, depression and anxiety. She received services from [facility] and [facility]. Her family is involved in her care and concerned about her ability to live at home safely. The patient reports she is and has four children. She completed half of the twelfth grade and is on disability for mental illness. Alcohol, tobacco and illegal drug use were denied. PAST MEDICAL HISTORY: Gastric ulcer, GERD, hepatitis B, osteoporosis, bipolar disorder, schizophrenia, allergic rhinitis, vitamin D deficiency. MEDICATIONS: Cardizem, Seroquel, vitamin B12, Fosamax, Singulair, Claritin, [place] D, vitamin D, Protonix, Geodon. The patient was sitting comfortably, in no apparent distress. She was oriented to person, place and time. She could name the president, the past president and current events. She could spell world forwards and backwards. Eye contact was intense and social skills were fair. Affect was flat and mood was anxious. The patient denied suicidal and homicidal ideation, plan, and intent. Speech was within normal limits with respect to rhythm, rate, volume and tone. Thought process was goal directed. Thought content was noteworthy for having trouble with knowing "what is real" and what reality is. Insight was fair and judgment was appropriate when responding to hypothetical situations, taken from the Cognistat. She was able to discuss some of her medical conditions and name the medications she takes that are associated with them. She discussed her reason for not taking Invega and stated that she would now like to start taking it, because of her conversation with her daughter and director of casework department yesterday and how they stated she did better while she was taking it. The patient earned a score of 18/30 on the [place] Cognitive Assessment with an intact score being 26. The patient tended to give up easily, but when prompted to try, she more often did not got the right answer. Mini trials B, Necker cube copy were impaired. Clock drawing was noteworthy for incorrect hand placement. Attention was generally intact with the patient being able to produce a minimum of 5 digits forward and 3 digits backwards. She did not make any errors on a test of vigilance. She made 2 correct serial 7 subtractions. With respect to language abilities, repetition was intact. She produced words in 1 minute on a test of verbal fluency and mistakenly called the rhinoceros a hippopotamus on a test of naming. Verbal abstraction was concrete. On a test of memory, the patient was able to recall 4/5 and 5/5 words on immediate recall trials and 0/5 words on a delayed recall trial. Performance improved to 1/5 with category cues and 3-5 with multiple choice. Overall, the patient demonstrated some cognitive deficits in the areas of executive functioning and memory, which would affect her ability to live independently without assistance. For example, she would likely have difficulty managing a household independently as well as taking her medications and managing money. The patient states she feels confused at times and would [place], [place] REPORT OF CONSULTATION NAME: ARACELI BOLAND UNIT #: [id number] ROOM: [facility] DOCTOR: ARSEN, PHD SADIE BIRTHDATE: [birth year] like her daughter to help her make decisions. Despite these difficulties, the patient still appears to be in my opinion competent to make her own medical decisions at this time. Nevertheless, she would benefit from establishing a power of botany technician and a power of botany technician for health care. DIAGNOSES: Schizoaffective disorder, bipolar type, neurocognitive disorder, unspecified. RECOMMENDATIONS: The patient would benefit from establishing a power of botany technician and a power of botany technician for healthcare. Thank you very much for this consult. Lisa Juarez, PhD CM:CONSTR:REPORT OF CONSULTATION 1211 02/19/18 1153 interface
--- NOTE | ~2018-01-31 | PR ---
[place], [place] PROGRESS NOTE NAME: ARACELI BOLAND UNIT #: [id number] ROOM: 314 DOCTOR: ASHISH HANKINS MD BIRTHDATE: [birth year] DOS: 02/09/2018 INTERVAL NOTE CHIEF COMPLAINT: "I am just feeling more anxious and I am not sleeping well." SUMMARY OF THE VISIT: The patient was interviewed as she was sitting in the back of the dining area. She was resting, but awoke easily. She engaged readily in conversation and reports that her head feels like it is going to explode. This is something that she notices when she becomes increasingly anxious. She is worried about her cardiac status and I did reassure her that the nurses and the hospitalists are aware of her cardiac issues and feel that she is stable and having no acute issue. She did report that the Stelazine that was started had been helping, but feels that it is not strong enough and requested an adjustment. MENTAL STATUS: She is alert and oriented with time gaps. Mood does seem to be trending towards euthymia. Affect is more appropriate. There is no lesia, hypomania or gross psychosis. Short-term memory does have some gaps, otherwise she is intact. PLAN: I will increase Stelazine from 1.25 mg twice daily to 1.25 mg 3 times daily. I will order Rozerem 8 mg at bedtime straight in order to attempt to give her sleeping through the night with a non-addicting agent. We will engage in individual and burciaga milieu activity, returning then to the least restrictive environment when psychiatrically stable. ASHISH HANKINS MD CM:PNTRANS [id number] ASHISH HANKINS MD 02/09/18 1650 interface
--- NOTE | ~2018-01-31 | PR ---
[place], [place] PROGRESS NOTE NAME: ARACELI BOLAND UNIT #: [id number] ROOM: 314 DOCTOR: JANETTE ANNE MD BIRTHDATE: [birth year] DOS: 02/02/2018 INTERVAL NOTE SUBJECTIVE: The patient is doing well. She feels more rested. She still is pleasantly confused. No chest pain, no shortness of breath. OBJECTIVE: VITAL SIGNS: Blood pressure 136/74, pulse is 64, respiratory rate 18, temperature 98.1. CHEST: Clinically clear to auscultation bilaterally. HEART: S1, S2, regular rate and no murmur, gallop or rub. ABDOMEN: Soft, nontender. EXTREMITIES: No edema. NEUROLOGIC: No focal deficit. LABORATORY DATA: Urine culture, no bacterial growth so far. ASSESSMENT: At this time: 1. Confusion and anxiety and depression, for which the patient is on Invega 2, 3, 4 mg IM, which she is going to receive on 02/04/[address] Baker's note. 2. Urinary tract infection. Urine culture is negative so far. No need of antibiotics. 3. Tachycardia, which has resolved after starting her on propranolol. Her EKG showed normal QT interval. Then, her B12 and folic acid was normal. Hemoglobin A1c was 5.3. PLAN OF CARE: We will continue close followup. From medical standpoint, she is stable. JANETTE ANNE MD CM:PNTRANS [phone] JANETTE ANNE MD 02/03/18 0135 interface
--- NOTE | ~2018-01-31 | PR ---
[place], [place] PROGRESS NOTE NAME: ARACELI BOLAND UNIT #: [id number] ROOM: 314 DOCTOR: LAURO REINOSO MD BIRTHDATE: [birth year] DOS: 02/03/2018 SUBJECTIVE: The patient seen and spoke with the staff. Per staff, the patient is still very depressed and flat and also very somatic. As per staff, she was complaining of dizziness. The patient was pleasant and cooperative. She was in the day area. She reports being depressed and down, but keeps on asking about medication due to her dizziness. It was hard to redirect, but eventually she calmed down and agreed to try drinking more fluids to help with the dizziness. MENTAL STATUS EXAMINATION: The patient was pleasant and cooperative. Described her mood as "down." Affect was flat, constricted. She denied auditory or visual hallucination. No delusion or paranoia. She denied suicidal ideation, intent or plan. She also denied homicidal ideation, intent or plan. PLAN: 1. Continue current medications and care. 2. Continue redirection. 3. Encourage activities in groups. LAURO REINOSO MD CM:PNTRANS [phone] LAURO REINOSO MD 02/04/18 0455 interface
--- NOTE | ~2018-01-31 | PR ---
[place], [place] PROGRESS NOTE NAME: ARACELI BOLAND UNIT #: [id number] ROOM: 314 DOCTOR: ASHISH HANKINS MD BIRTHDATE: [birth year] DOS: 02/05/2018 INTERVAL NOTE CHIEF COMPLAINT: "I am so confused. I need my Klonopin." SUMMARY OF THE VISIT: The patient was interviewed on 2 separate occasions, both times she approached me to tell me that she is confused. She looked rather perplexed and bewildered. She did specifically request that I put her back on Klonopin. I did mention to her that Klonopin in and of itself oftentimes promotes confusion in people. She wandered the halls seemingly confused and perplexed. Later, I did see her resting in bed quietly and calm. MENTAL STATUS: She is alert and oriented to person, place, not necessarily time. Mood does seem to be rather anxious and fretful, how much of this is faint, however, I do not know. There is no gross psychosis or lesia. Memory does have some gaps. PLAN: I will simplify her drug regimen. She is on a very small dose of Inderal 10 mg in the morning. I will discontinue the Invega and the Vistaril in lieu of Seroquel 25 mg t.i.d. This should have an impact on her anxiety as well as help stabilize her mood. Additionally, her vitamin B12 level is low normal at 325. I will treat with vitamin B12 injection 1000 mcg IM monthly. We will also obtain a PT and OT evaluation to determine her true ability to cook, clean and do ADLs without assistance to determine the least restrictive environment to which she could be discharged when she is stable. ASHISH HANKINS MD CM:PNTRANS [id number] ASHISH HANKINS MD 02/06/18 0226 interface
--- NOTE | ~2018-01-31 | DS ---
[place], [place] DISCHARGE SUMMARY NAME: ARACELI BOLAND UNIT #: [id number] ROOM: 314 DOCTOR: ASHISH HANKINS MD BIRTHDATE: [birth year] DOS: 02/12/2018 CHIEF COMPLAINT: "I am just so anxious and confused." HISTORY OF PRESENT ILLNESS: This is a 67-year-old white female known to me from previous admissions here to the [facility]. She presented to the Emergency Room with a chief complaint of worsening depression, confusion and anxiety. The patient reports that this has been ongoing for the last 3-4 months. During this period of time, she has noted being very disoriented and confused. She has not been eating and has lost 10 pounds during this time. The patient, however, has been episodically noncompliant with all of her psychotropic medications. A call to her pharmacy reveals the prescriptions have been sent there, but she has not picked up her psychotropic medications for some time. She was admitted now to rule out any organic factors to engage in individual and burciaga milieu activity and to determine the least restrictive environment to which she could be returned. SUMMARY OF HOSPITAL COURSE: The patient was admitted to the unit where she had her Latuda discontinued in lieu of Invega 6 mg a day. The hope was to eventually start her on Invega Sustenna; however, the patient refused the injection. The patient continued to complaint of side effects from the Invega stating that it was causing her to have a headache and other vague somatic complaints. Ultimately, the mood stabilizer of choice was Stelazine at the dose of 1.5 twice a day. Later she complained that this was not strong enough, so the dose was increased to 1.5 mg 3 times a day. The patient throughout her stay continued to request being placed back on her Klonopin; however, I attempted on a daily basis to reorient her that this was not a good drug for her and this would cause worsening confusion and worsen her depression instead, I utilized Vistaril 50 mg 3 times a day, which again she complained of being ineffective and was causing her side effects. The Stelazine seem to work for both the anxiety and for her mood and she tolerated it well. The patient noticed that her confusion also seemed to dissipate over time and she was able to attend more appropriately to her ADLs. During her stay, Lisa Juarez, the psychologist was consulted for competency and the patient was deemed competent, but she did feel that a power of attorney recruiter would be beneficial should this occur in the future. The patient had improved sufficiently by 02/12/2018, to return home and have outpatient services provided for her. MENTAL STATUS: At the time of discharge, she is alert and oriented to person, place and very approximate to time. Mood is strongly trending towards euthymia while affect is much more appropriate. There is no lesia, hypomania or psychosis. Memory for the most part is intact. FINAL DIAGNOSIS: Schizoaffective disorder. DISPOSITION: The patient is returning home. There are no acute medical issues confronting her and psychiatrically she is stable. [place], [place] DISCHARGE SUMMARY NAME: ARACELI BOLAND UNIT #: [id number] ROOM: [facility] DOCTOR: ASHISH HANKINS MD BIRTHDATE: [birth year] ASHISH HANKINS MD CM:DISCHARG [id number] ASHISH HANKINS MD 03/01/18 2334 interface
--- NOTE | ~2018-01-31 | EKG ---
[place], [place] ELECTROCARDIOGRAM REPORT NAME: ARACELI BOLAND UNIT #: [id number] ROOM: 314 DOCTOR: HAWK DRAFT REPORT BIRTHDATE: [birth year] [facility] Test Date: 2018-01-31 Test Time: 11:08:07 Pat Name: ARACELI BOLAND Department: Room: [facility] Gender: F Vulnerability Assessment Analyst: CHARLENE NETTLESB: 1950 Requested By: GLYNN CARRENO Order Number: [id number] Reading MD: Yousuf Black MD Measurements Intervals [place] Rate: 64 P: 38 WA: 182 QRS: 21 QRSD: 85 T: 23 QT: 376 QTc: 388 Interpretive Statements Sinus rhythm Abnormal R-wave progression, early transition Electronically Signed On 02-01-2018 8:24:11 PDT by Yousuf Black MD CM:EKGRPT:ELECTROCARDIOGRAM REPORT [id number] GLYNN POLLARD DRAFT REPORT GLYNN CARRENO DO
[2018-01-31 10:08] VITALS: BP 120/84
[2018-01-31 10:59] VITALS: BP 118/92
[2018-01-31 10:59] LABS: BASO % 0.6 % (0.0-1.0); EOS # 0.1 10*3/uL (0.0-0.4); EOS % 1.9 % (1.0-4.0); HEMATOCRIT 39.2 % (37.0-47.0); HEMOGLOBIN 13.2 g/dl (12.0-16.0); LYMPH # 2.8 10*3/uL (1.3-4.4); MEAN CELL VOLUME 89.5 fl (81.0-99.0); MEAN CORPUSCULAR HGB 30.1 pg (27.0-31.0); MEAN CORPUSCULAR HGB CONC 33.7 g/dl (33.0-37.0); MEAN PLATELET VOLUME 10.2 fl (9.6-12.3); MONO # 0.6 10*3/uL (0.1-1.0); MONO % 8.1 % (3.0-9.0); NEUT # 3.4 10*3/uL (2.3-7.9); NEUT % 48.4 % (47.0-73.0); PLATELET COUNT AUTOMATED 221 10*3/uL (130-400); RED BLOOD COUNT 4.38 10*6/uL (4.10-5.10); RED CELL DISTRI WIDTH 12.6 % (0-14.5); WHITE BLOOD COUNT 6.9 10*3/uL (4.8-10.8)
[2018-01-31 11:07] LABS: ACT PARTIAL THROMBO TIME 22.8 SECONDS (20.8-31.5)
[2018-01-31 11:16] LABS: ALBUMIN 3.7 gm/dl (3.1-4.5); ALKALINE PHOSPHATASE 82 U/L (45-117); BUN 10 mg/dl (7-24); CHLORIDE 101 mmol/L (98-107); LIPASE 87 U/L (73-393); POTASSIUM 3.6 mmol/L (3.5-5.1); SGOT/AST 15 IU/L (3-35); SGPT/ALT 21 U/L (12-78); SODIUM 136 mmol/L (136-145); TOTAL PROTEIN 7.2 gm/dL (6.4-8.2)
[2018-01-31 11:18] LABS: TROPONIN I < 0.015 ng/ml (<0.045)
[2018-01-31 11:56] LABS: BILIRUBIN NEGATIVE (NEGATIVE); BLOOD NEGATIVE (NEGATIVE); CLARITY CLEAR (CLEAR); COLOR STRAW (YELLOW); GLUCOSE NEGATIVE (NEGATIVE); KETONE NEGATIVE (NEGATIVE); LEUKO ESTERASE 1+ (NEGATIVE); NITRITE NEGATIVE (NEGATIVE); SPECIFIC GRAVITY <= 1.005 (1.005-1.030); UROBILINOGEN 0.2 E.U./dl (0.2-1.0)
[2018-01-31 12:48] LABS: BACTERIA 1+
[2018-01-31] MEDS ORDERED: PROPRANOLOL HCL10 MG PO (19:27)
[2018-01-31] MEDS ORDERED: FOSAMAX70 M1 PO (19:28)
[2018-01-31] MEDS ORDERED: CLONIDINE HCL0.1 MG PO (19:29)
[2018-01-31 20:00] VITALS: BP 114/68
[2018-01-31 21:51] VITALS: BP 114/68
[2018-02-01 06:56] LABS: BASO % 0.6 % (0.0-1.0); EOS # 0.1 10*3/uL (0.0-0.4); EOS % 2.1 % (1.0-4.0); HEMATOCRIT 38.9 % (37.0-47.0); HEMOGLOBIN 13.3 g/dl (12.0-16.0); LYMPH # 2.2 10*3/uL (1.3-4.4); LYMPH % 42.7 % (27.0-41.0); MEAN CELL VOLUME 88.8 fl (81.0-99.0); MEAN CORPUSCULAR HGB 30.4 pg (27.0-31.0); MEAN CORPUSCULAR HGB CONC 34.2 g/dl (33.0-37.0); MEAN PLATELET VOLUME 10.4 fl (9.6-12.3); MONO # 0.4 10*3/uL (0.1-1.0); MONO % 7.9 % (3.0-9.0); NEUT # 2.4 10*3/uL (2.3-7.9); NEUT % 46.5 % (47.0-73.0); PLATELET COUNT AUTOMATED 205 10*3/uL (130-400); RED BLOOD COUNT 4.38 10*6/uL (4.10-5.10); RED CELL DISTRI WIDTH 12.6 % (0-14.5); WHITE BLOOD COUNT 5.2 10*3/uL (4.8-10.8)
[2018-02-01 07:12] LABS: ALBUMIN 3.6 gm/dl (3.1-4.5); BUN 7 mg/dl (7-24); CHLORIDE 108 mmol/L (98-107); POTASSIUM 3.8 mmol/L (3.5-5.1); SODIUM 143 mmol/L (136-145)
[2018-02-01 07:13] VITALS: BP 133/75
[2018-02-01 07:25] LABS: ALKALINE PHOSPHATASE 78 U/L (45-117); CHOLESTEROL 134 mg/dL (<200); CREATININE 0.81 mg/dL (0.55-1.02); HDL CHOLESTEROL 69 mg/dl (40-60); LDL CHOLESTEROL 53 mg/dL (9-159); SGOT/AST 14 IU/L (3-35); SGPT/ALT 22 U/L (12-78); TOTAL PROTEIN 7.1 gm/dL (6.4-8.2); TRIGLYCERIDES 61 mg/dl (<150); VLDL CHOLESTEROL 12 mg/dL (6-40)
[2018-02-01] MEDS ORDERED: CARAFATE1 G1 PO (09:14)
[2018-02-01 18:39] VITALS: BP 121/74
[2018-02-02 08:30] VITALS: BP 136/74
[2018-02-02 19:07] VITALS: BP 134/85
[2018-02-03 08:07] VITALS: BP 134/78
[2018-02-03 11:00] VITALS: BP 127/86
[2018-02-03 19:59] VITALS: BP 124/71
[2018-02-04 07:13] VITALS: BP 131/72
[2018-02-04 19:22] VITALS: BP 146/83
[2018-02-05 08:55] VITALS: BP 122/76
[2018-02-05 20:02] VITALS: BP 125/82
[2018-02-06 07:59] VITALS: BP 136/71
[2018-02-06 20:10] VITALS: BP 126/84
[2018-02-07 09:18] VITALS: BP 146/77
[2018-02-07 19:54] VITALS: BP 130/83
[2018-02-08 06:28] VITALS: BP 125/80
[2018-02-08 20:22] VITALS: BP 142/77
[2018-02-09 07:50] VITALS: BP 137/79
[2018-02-09 20:00] VITALS: BP 122/78
[2018-02-10 07:25] VITALS: BP 108/72
[2018-02-10 19:50] VITALS: BP 125/87
[2018-02-11 07:52] VITALS: BP 115/70
[2018-02-11 20:00] VITALS: BP 109/73
[2018-02-12 08:00] VITALS: BP 128/70
[2018-02-12] MEDS ORDERED: VITAMIN D5000 UNI1 PO (10:25)
[2018-02-12] MEDS ORDERED: TRIFLUOPERAZINE5 M1 PO (10:25)
[2018-02-12] MEDS ORDERED: B121000 MCG/1 IM (10:25)
== END 2018-02-12 12:50 | disposition home or self-care (01) | DRG 885 ==
LOC: ED 10:04 → 3N 18:01
PROVIDERS: Emergency Medicine; Psychiatry & Neurology Psychiatry
DX: F25.0 Schizoaffective disorder, bipolar type (principal); N39.0 Urinary tract infection, site not specified; F32.9 Major depressive disorder, single episode, unspecified; F41.9 Anxiety disorder, unspecified; R82.71 Bacteriuria; R00.1 Bradycardia, unspecified; N18.3 Chronic kidney disease, stage 3 (moderate); K21.9 Gastro-esophageal reflux disease without esophagitis; M81.0 Age-related osteoporosis without current pathological fracture; E55.9 Vitamin D deficiency, unspecified; E66.3 Overweight; J30.2 Other seasonal allergic rhinitis; R41.0 Disorientation, unspecified; R00.2 Palpitations; H10.10 Acute atopic conjunctivitis, unspecified eye; R41.9 Unspecified symptoms and signs involving cognitive functions and awareness; Z91.19 Patient's noncompliance with other medical treatment and regimen; Z88.2 Allergy status to sulfonamides; Z88.6 Allergy status to analgesic agent; Z79.899 Other long term (current) drug therapy; Z87.440 Personal history of urinary (tract) infections; Z90.49 Acquired absence of other specified parts of digestive tract; Z90.710 Acquired absence of both cervix and uterus; Z98.51 Tubal ligation status; Z83.6 Family history of other diseases of the respiratory system; Z80.8 Family history of malignant neoplasm of other organs or systems; Z86.19 Personal history of other infectious and parasitic diseases; Z68.29 Body mass index [BMI] 29.0-29.9, adult

== ENCOUNTER 2018-03-04 08:10 | Emergency (ER) | payer MEDICAID ==
[~2018-03-04] VITALS: Wt 60.8 kg
[~2018-03-04 08:10] MED LIST changes: +B121000 MCG/1 IM; +CARAFATE1 G1 PO; +CLONIDINE HCL0.1 MG PO; +FOSAMAX70 M1 PO; +PROPRANOLOL HCL10 MG PO; +TRIFLUOPERAZINE5 M1 PO
[2018-03-04] MEDS ORDERED: ATIVAN1 MG PO (09:18)
== END 2018-03-04 10:25 | disposition home or self-care (01) ==
LOC: ED 08:10
DX: F41.9 Anxiety disorder, unspecified (principal); R00.2 Palpitations; K21.9 Gastro-esophageal reflux disease without esophagitis; M81.0 Age-related osteoporosis without current pathological fracture; I12.9 Hypertensive chronic kidney disease with stage 1 through stage 4 chronic kidney disease, or unspecified chronic kidney disease; N18.3 Chronic kidney disease, stage 3 (moderate); Z88.6 Allergy status to analgesic agent; Z88.2 Allergy status to sulfonamides; Z79.899 Other long term (current) drug therapy

== ENCOUNTER 2018-03-30 12:17 | Emergency (ER) | payer MEDICAID ==
[~2018-03-30] VITALS: Ht 154.9 cm; Wt 59.9 kg
[~2018-03-30 12:17] MED LIST changes: +ATIVAN1 MG PO
[2018-03-30 12:37] LABS: BILIRUBIN NEGATIVE (NEGATIVE); BLOOD NEGATIVE (NEGATIVE); CLARITY CLEAR (CLEAR); GLUCOSE NEGATIVE (NEGATIVE); KETONE NEGATIVE (NEGATIVE); LEUKO ESTERASE 2+ (NEGATIVE); NITRITE NEGATIVE (NEGATIVE); UROBILINOGEN 0.2 E.U./dl (0.2-1.0)
[2018-03-30 12:53] LABS: COLOR YELLOW (YELLOW); PH 6.5 (5.0-9.0); SPECIFIC GRAVITY <= 1.005 (1.005-1.030)
[2018-03-30 12:54] LABS: BACTERIA 1+; WBC 21-30 wbc/hpf (0-5)
[2018-03-30 14:02] LABS: BASO % 0.3 % (0.0-1.0); EOS # 0.1 10*3/uL (0.0-0.4); EOS % 1.4 % (1.0-4.0); HEMATOCRIT 40.7 % (37.0-47.0); HEMOGLOBIN 13.8 g/dl (12.0-16.0); LYMPH # 2.2 10*3/uL (1.3-4.4); LYMPH % 31.1 % (27.0-41.0); MEAN CELL VOLUME 90.2 fl (81.0-99.0); MEAN CORPUSCULAR HGB 30.6 pg (27.0-31.0); MEAN CORPUSCULAR HGB CONC 33.9 g/dl (33.0-37.0); MONO # 0.6 10*3/uL (0.1-1.0); MONO % 8.8 % (3.0-9.0); NEUT # 4.2 10*3/uL (2.3-7.9); NEUT % 58.3 % (47.0-73.0); PLATELET COUNT AUTOMATED 261 10*3/uL (130-400); RED BLOOD COUNT 4.51 10*6/uL (4.10-5.10); RED CELL DISTRI WIDTH 13.2 % (0-14.5); WHITE BLOOD COUNT 7.1 10*3/uL (4.8-10.8)
[2018-03-30 14:17] LABS: ALBUMIN 3.6 gm/dl (3.1-4.5); ALKALINE PHOSPHATASE 81 U/L (45-117); BUN 6 mg/dl (7-24); CHLORIDE 108 mmol/L (98-107); CREATININE 0.86 mg/dL (0.55-1.02); POTASSIUM 3.4 mmol/L (3.5-5.1); SGOT/AST 14 IU/L (3-35); SGPT/ALT 17 U/L (12-78); SODIUM 141 mmol/L (136-145); TOTAL PROTEIN 6.9 gm/dL (6.4-8.2)
[2018-03-30 14:26] LABS: ACETAMINOPHEN (TYLENOL) < 5.0 ug/ml (10-30); ETHYL ALCOHOL < 3.0 mg/dl (<3)
[2018-03-30 14:38] LABS: URINE AMPHETAMINES < 1000 (1000ng/ml); URINE BARBITURATES < 200 (200ng/ml); URINE BENZODIAZEPINES < 200 (200ng/ml); URINE CANNABINOIDS (THC) < 50 (50ng/ml); URINE COCAINE < 300 (300ng/ml); URINE METHADONE < 300 (300ng/ml); URINE OPIATES < 300 (300ng/ml)
[2018-03-30 14:44] LABS: URINE PHENCYCLIDINE < 25 (25ng/ml)
[2018-03-30] MEDS ORDERED: MACROBID100 M1 PO (18:31)
== END 2018-03-30 18:51 | disposition home or self-care (01) ==
LOC: ED 12:17
PROVIDERS: Emergency Medicine; Nurse Practitioner Family
DX: F41.9 Anxiety disorder, unspecified (principal); N39.0 Urinary tract infection, site not specified; F31.9 Bipolar disorder, unspecified; F25.9 Schizoaffective disorder, unspecified; I12.9 Hypertensive chronic kidney disease with stage 1 through stage 4 chronic kidney disease, or unspecified chronic kidney disease; N18.3 Chronic kidney disease, stage 3 (moderate); K21.9 Gastro-esophageal reflux disease without esophagitis; M81.0 Age-related osteoporosis without current pathological fracture; Z88.6 Allergy status to analgesic agent; Z88.2 Allergy status to sulfonamides; Z79.899 Other long term (current) drug therapy; Z90.710 Acquired absence of both cervix and uterus; Z90.49 Acquired absence of other specified parts of digestive tract

== ENCOUNTER → 2018-05-02 | Outpatient (CLI) | payer MEDICAID ==
[~2018-05-02] MED LIST changes: +BUSPIRONE HCL7.5 MG PO; +CARDIZEM CD180 MG PO; +CEPHALEXIN500 M1 PO; +OLANZAPINE5 MG PO; +REXULTI1 MG PO; +TRAZODONE50 MG PO; +ZYPREXA2.5 MG PO
== END | disposition home or self-care (01) ==
LOC: MRI 09:39
DX: R41.3 Other amnesia (principal); R41.0 Disorientation, unspecified; R41.89 Other symptoms and signs involving cognitive functions and awareness

== ENCOUNTER → 2018-05-08 | Outpatient (CLI) | payer MEDICAID ==
[~2018-05-08] MED LIST changes: +ATARAX,VISTARIL50 MG PO; +RISPERDAL2 M1 PO; +RIVASTIGMINE1 EACH T; +TRILAFON16 MG PO
--- NOTE | ~2018-05-08 | EEG ---
[place], [place] ELECTROENCEPHALOGRAM REPORT NAME: ARACELI BOLAND UNIT #: [id number] ROOM: DOCTOR: MERCEDES COX MD, JR DOS: 05/08/2018 This 67-year-old woman on lorazepam and Macrobid displayed following underlying rhythms --- well organized, synchronous, 10 Hz, 30 microvolt alpha rhythms in both posterior regions. The 20 Hz, 10 microvolt beta rhythms were noted in both precentral regions. There was symmetrical attenuation of the posterior alpha rhythms with eye opening. There was poor effort with hyperventilation, but without abnormalities. There was no driving to photic stimulation. The patient did not fall asleep during this tracing. Throughout this recording, there were no focal abnormalities or epileptiform discharges. IMPRESSION: --- normal awake EEG. MERCEDES COX MD CM:EEG:ELECTROENCEPHALOGRAM REPORT [id number] MERCEDES COX MD, JR
[2018-05-12 11:06] LABS: METHYLMALONIC ACID 231 nmol/L (0-378)
== END | disposition home or self-care (01) ==
LOC: LAB 10:50 → CP 12:00
PROVIDERS: Psychiatry & Neurology Neurology
DX: R41.0 Disorientation, unspecified (principal); R41.89 Other symptoms and signs involving cognitive functions and awareness; E53.8 Deficiency of other specified B group vitamins

== ENCOUNTER 2018-06-03 09:47 | Emergency (ER) | payer MEDICAID ==
--- NOTE | ~2018-06-03 | EKG ---
[place], [place] ELECTROCARDIOGRAM REPORT NAME: ARACELI BOLAND UNIT #: [id number] ROOM: DOCTOR: EPIPHANY DRAFT REPORT BIRTHDATE: [birth year] [facility] Test Date: 2018-06-03 Test Time: 10:10:08 Pat Name: ARACELI BOLAND Department: Room: Gender: F Pipe Assembly Worker: Mayi Reaves : 1950 Requested By: DUNCAN CUELLAR DNP Order Number: [id number] Reading MD: Leonela Beckett MD Measurements Intervals [place] Rate: 78 P: 70 MA: 52 QRS: 63 QRSD: 89 T: 63 QT: 357 QTc: 407 Interpretive Statements Sinus rhythm Short MA interval RVH Compared to ECG 01/31/2018 11:08:07 Short MA interval now present Myocardial infarct finding now present Electronically Signed On 06-06-2018 14:04:45 PST by Leonela Beckett MD CM:EKGRPT:ELECTROCARDIOGRAM REPORT 1010 [id number] DUNCAN CUELLAR DNP EPIPHANY DRAFT REPORT DUNCAN CUELLAR DNP
[~2018-06-03 09:47] MED LIST changes: -ATARAX,VISTARIL50 MG PO; -BUSPIRONE HCL7.5 MG PO; -CARDIZEM CD180 MG PO; -CEPHALEXIN500 M1 PO; -OLANZAPINE5 MG PO; -REXULTI1 MG PO; -RISPERDAL2 M1 PO; -RIVASTIGMINE1 EACH T; -TRAZODONE50 MG PO; -TRILAFON16 MG PO; -ZYPREXA2.5 MG PO
[2018-06-03 10:26] LABS: BASO # 0.1 10*3/uL (0.0-0.1); BASO % 0.7 % (0.0-1.0); EOS # 0.1 10*3/uL (0.0-0.4); EOS % 0.7 % (1.0-4.0); HEMATOCRIT 46.4 % (37.0-47.0); HEMOGLOBIN 15.9 g/dl (12.0-16.0); LYMPH # 2.3 10*3/uL (1.3-4.4); LYMPH % 31.1 % (27.0-41.0); MEAN CELL VOLUME 89.9 fl (81.0-99.0); MEAN CORPUSCULAR HGB 30.8 pg (27.0-31.0); MEAN CORPUSCULAR HGB CONC 34.3 g/dl (33.0-37.0); MEAN PLATELET VOLUME 10.2 fl (9.6-12.3); MONO # 0.5 10*3/uL (0.1-1.0); MONO % 6.2 % (3.0-9.0); NEUT # 4.5 10*3/uL (2.3-7.9); NEUT % 61.2 % (47.0-73.0); PLATELET COUNT AUTOMATED 218 10*3/uL (130-400); RED BLOOD COUNT 5.16 10*6/uL (4.10-5.10); RED CELL DISTRI WIDTH 12.8 % (0-14.5); WHITE BLOOD COUNT 7.4 10*3/uL (4.8-10.8)
[2018-06-03 10:30] LABS: BILIRUBIN NEGATIVE (NEGATIVE); BLOOD NEGATIVE (NEGATIVE); CLARITY CLEAR (CLEAR); COLOR YELLOW (YELLOW); GLUCOSE NEGATIVE (NEGATIVE); KETONE TRACE (NEGATIVE); LEUKO ESTERASE 2+ (NEGATIVE); NITRITE NEGATIVE (NEGATIVE); SPECIFIC GRAVITY <= 1.005 (1.005-1.030); UROBILINOGEN 0.2 E.U./dl (0.2-1.0)
[2018-06-03 10:35] LABS: ACT PARTIAL THROMBO TIME 21.9 SECONDS (20.8-31.5)
[2018-06-03 10:42] LABS: ALBUMIN 4.2 gm/dl (3.1-4.5); ALKALINE PHOSPHATASE 93 U/L (45-117); BUN 12 mg/dl (7-24); CHLORIDE 105 mmol/L (98-107); LIPASE 91 U/L (73-393); POTASSIUM 3.5 mmol/L (3.5-5.1); SGOT/AST 11 IU/L (3-35); SGPT/ALT 20 U/L (12-78); SODIUM 138 mmol/L (136-145); TOTAL PROTEIN 8.3 gm/dL (6.4-8.2); TROPONIN I < 0.015 ng/ml (<0.045)
[2018-06-03 10:47] LABS: BACTERIA 1+; WBC 16-20 wbc/hpf (0-5)
[2018-06-03] MEDS ORDERED: CEPHALEXIN500 M1 PO (11:08)
[2018-06-17] MEDS ORDERED: BUSPIRONE HCL7.5 MG PO (14:08)
[2018-06-17] MEDS ORDERED: ATIVAN0.5 MG PO (14:08)
[2018-06-17] MEDS ORDERED: CARDIZEM CD180 MG PO (14:09)
[2018-06-17] MEDS ORDERED: TRAZODONE50 MG PO (17:00)
[2018-06-17] MEDS ORDERED: REXULTI1 MG PO (17:21)
[2018-06-22] MEDS ORDERED: ZYPREXA2.5 MG PO (13:03)
[2018-06-22] MEDS ORDERED: OLANZAPINE5 MG PO (13:03)
[2018-07-27] MEDS ORDERED: TRILAFON16 MG PO (15:42)
[2018-07-27] MEDS ORDERED: RISPERDAL2 M1 PO (15:43)
[2018-08-03] MEDS ORDERED: ATARAX,VISTARIL50 MG PO (08:28)
[2018-08-03] MEDS ORDERED: MIRTAZAPINE15 M2 PO (08:28)
[2018-08-03] MEDS ORDERED: RIVASTIGMINE1 EACH T (08:28)
[2018-08-03] MEDS ORDERED: OLANZAPINE5 MG PO ×2 (08:28)
== END 2018-06-03 11:12 | disposition home or self-care (01) ==
LOC: ED 09:47
PROVIDERS: Nurse Practitioner Family
DX: N39.0 Urinary tract infection, site not specified (principal); R42 Dizziness and giddiness; Z88.6 Allergy status to analgesic agent; Z88.2 Allergy status to sulfonamides; Z79.899 Other long term (current) drug therapy

== ENCOUNTER 2018-06-29 15:01 | Emergency (ER) | payer MEDICAID ==
[~2018-06-29] VITALS: Ht 154.9 cm; Wt 56.7 kg
--- NOTE | ~2018-06-29 | EKG ---
[place], [place] ELECTROCARDIOGRAM REPORT NAME: ARACELI BOLAND UNIT #: [id number] ROOM: DOCTOR: EPIPHANY DRAFT REPORT BIRTHDATE: [birth year] [facility] Test Date: 2018-06-29 Test Time: 16:17:35 Pat Name: ARACELI BOLAND Department: ER Room: Gender: F Production Painter: Mayi Reaves : 1950 Requested By: ZACK ULLOA Order Number: [id number] Reading MD: Yousuf Black MD Measurements Intervals [place] Rate: 95 P: 55 ID: [id number] QRS: 41 QRSD: 75 T: 41 QT: 328 QTc: 413 Interpretive Statements Sinus rhythm Compared to ECG 06/17/2018 09:28:43 Sinus tachycardia no longer present Electronically Signed On 07-02-2018 8:22:15 PDT by Yousuf Black MD CM:EKGRPT:ELECTROCARDIOGRAM REPORT [id number] 0822 ZACK ARECHIGA DRAFT REPORT ZACK ULLOA MD
[~2018-06-29 15:01] MED LIST changes: +BUSPIRONE HCL7.5 MG PO; +CARDIZEM CD180 MG PO; +CEPHALEXIN500 M1 PO; +OLANZAPINE5 MG PO; +REXULTI1 MG PO; +TRAZODONE50 MG PO; +ZYPREXA2.5 MG PO
[2018-06-29 16:09] LABS: BASO % 0.6 % (0.0-1.0); EOS # 0.1 10*3/uL (0.0-0.4); EOS % 0.8 % (1.0-4.0); HEMATOCRIT 41.7 % (37.0-47.0); HEMOGLOBIN 14.4 g/dl (12.0-16.0); LYMPH # 2.2 10*3/uL (1.3-4.4); LYMPH % 33.1 % (27.0-41.0); MEAN CELL VOLUME 89.1 fl (81.0-99.0); MEAN CORPUSCULAR HGB 30.8 pg (27.0-31.0); MEAN CORPUSCULAR HGB CONC 34.5 g/dl (33.0-37.0); MEAN PLATELET VOLUME 9.7 fl (9.6-12.3); MONO # 0.6 10*3/uL (0.1-1.0); MONO % 9.4 % (3.0-9.0); NEUT # 3.7 10*3/uL (2.3-7.9); NEUT % 55.9 % (47.0-73.0); PLATELET COUNT AUTOMATED 294 10*3/uL (130-400); RED BLOOD COUNT 4.68 10*6/uL (4.10-5.10); WHITE BLOOD COUNT 6.6 10*3/uL (4.8-10.8)
[2018-06-29 16:35] LABS: ALBUMIN 3.7 gm/dl (3.1-4.5); ALKALINE PHOSPHATASE 84 U/L (45-117); BUN 7 mg/dl (7-24); CHLORIDE 103 mmol/L (98-107); CREATININE 0.72 mg/dL (0.55-1.02); POTASSIUM 3.7 mmol/L (3.5-5.1); SGOT/AST 12 IU/L (3-35); SGPT/ALT 24 U/L (12-78); SODIUM 138 mmol/L (136-145); TOTAL PROTEIN 7.4 gm/dL (6.4-8.2)
[2018-06-29 16:37] LABS: ACT PARTIAL THROMBO TIME 22.2 SECONDS (20.8-31.5); INTERNATIONAL NORM RATIO 0.9 (2.0-3.5)
[2018-06-29 16:38] LABS: ETHYL ALCOHOL < 3.0 mg/dl (<3); TROPONIN I < 0.015 ng/ml (<0.045)
[2018-06-29 17:35] LABS: BILIRUBIN NEGATIVE (NEGATIVE); BLOOD NEGATIVE (NEGATIVE); CLARITY CLEAR (CLEAR); COLOR YELLOW (YELLOW); GLUCOSE NEGATIVE (NEGATIVE); KETONE NEGATIVE (NEGATIVE); LEUKO ESTERASE 2+ (NEGATIVE); NITRITE NEGATIVE (NEGATIVE); SPECIFIC GRAVITY <= 1.005 (1.005-1.030); UROBILINOGEN 0.2 E.U./dl (0.2-1.0)
[2018-06-29 17:43] LABS: URINE AMPHETAMINES < 1000 (1000ng/ml); URINE BARBITURATES < 200 (200ng/ml); URINE BENZODIAZEPINES < 200 (200ng/ml); URINE CANNABINOIDS (THC) < 50 (50ng/ml); URINE COCAINE < 300 (300ng/ml); URINE METHADONE < 300 (300ng/ml); URINE OPIATES < 300 (300ng/ml)
[2018-06-29 17:45] LABS: BACTERIA 1+
[2018-06-29 17:47] LABS: URINE PHENCYCLIDINE < 25 (25ng/ml)
[2018-07-27] MEDS ORDERED: TRILAFON16 MG PO (15:42)
[2018-07-27] MEDS ORDERED: RISPERDAL2 M1 PO (15:43)
[2018-08-03] MEDS ORDERED: ATARAX,VISTARIL50 MG PO (08:28)
[2018-08-03] MEDS ORDERED: MIRTAZAPINE15 M2 PO (08:28)
[2018-08-03] MEDS ORDERED: RIVASTIGMINE1 EACH T (08:28)
[2018-08-03] MEDS ORDERED: OLANZAPINE5 MG PO ×2 (08:28)
== END 2018-06-29 20:35 | disposition short-term general hospital (02) ==
LOC: ED 15:01
PROVIDERS: Emergency Medicine
DX: F23 Brief psychotic disorder (principal); F41.9 Anxiety disorder, unspecified; F31.9 Bipolar disorder, unspecified; K21.9 Gastro-esophageal reflux disease without esophagitis; E66.3 Overweight; I12.9 Hypertensive chronic kidney disease with stage 1 through stage 4 chronic kidney disease, or unspecified chronic kidney disease; N18.3 Chronic kidney disease, stage 3 (moderate); Z88.6 Allergy status to analgesic agent; Z98.51 Tubal ligation status; Z90.49 Acquired absence of other specified parts of digestive tract; Z68.29 Body mass index [BMI] 29.0-29.9, adult; Z98.890 Other specified postprocedural states; Z88.2 Allergy status to sulfonamides; Z79.899 Other long term (current) drug therapy

== ENCOUNTER 2018-07-14 12:06 | Emergency (ER) | payer MEDICAID ==
[~2018-07-14] VITALS: Ht 154.9 cm; Wt 58.1 kg
[2018-07-14 12:31] LABS: BASO % 0.3 % (0.0-1.0); HEMATOCRIT 40.1 % (37.0-47.0); HEMOGLOBIN 13.5 g/dl (12.0-16.0); LYMPH # 1.7 10*3/uL (1.3-4.4); LYMPH % 26.1 % (27.0-41.0); MEAN CELL VOLUME 90.5 fl (81.0-99.0); MEAN CORPUSCULAR HGB 30.5 pg (27.0-31.0); MEAN CORPUSCULAR HGB CONC 33.7 g/dl (33.0-37.0); MEAN PLATELET VOLUME 9.5 fl (9.6-12.3); MONO # 0.5 10*3/uL (0.1-1.0); MONO % 7.4 % (3.0-9.0); NEUT # 4.3 10*3/uL (2.3-7.9); NEUT % 65.9 % (47.0-73.0); PLATELET COUNT AUTOMATED 271 10*3/uL (130-400); RED BLOOD COUNT 4.43 10*6/uL (4.10-5.10); RED CELL DISTRI WIDTH 12.9 % (0-14.5); WHITE BLOOD COUNT 6.5 10*3/uL (4.8-10.8)
[2018-07-14 12:44] LABS: BILIRUBIN NEGATIVE (NEGATIVE); BLOOD NEGATIVE (NEGATIVE); CLARITY CLEAR (CLEAR); COLOR YELLOW (YELLOW); GLUCOSE NEGATIVE (NEGATIVE); KETONE NEGATIVE (NEGATIVE); LEUKO ESTERASE 2+ (NEGATIVE); NITRITE NEGATIVE (NEGATIVE); SPECIFIC GRAVITY <= 1.005 (1.005-1.030); UROBILINOGEN 0.2 E.U./dl (0.2-1.0)
[2018-07-14 12:50] LABS: BACTERIA 1+
[2018-07-14 12:52] LABS: URINE AMPHETAMINES < 1000 (1000ng/ml); URINE BARBITURATES < 200 (200ng/ml); URINE BENZODIAZEPINES < 200 (200ng/ml); URINE CANNABINOIDS (THC) < 50 (50ng/ml); URINE COCAINE < 300 (300ng/ml); URINE METHADONE < 300 (300ng/ml); URINE OPIATES < 300 (300ng/ml)
[2018-07-14 12:55] LABS: URINE PHENCYCLIDINE < 25 (25ng/ml)
[2018-07-14 12:58] LABS: BUN 7 mg/dl (7-24); CHLORIDE 105 mmol/L (98-107); CREATININE 0.81 mg/dL (0.55-1.02); POTASSIUM 3.4 mmol/L (3.5-5.1); SODIUM 140 mmol/L (136-145)
[2018-07-14 13:01] LABS: ACETAMINOPHEN (TYLENOL) < 5.0 ug/ml (10-30); ETHYL ALCOHOL < 3.0 mg/dl (<3)
[2018-07-27] MEDS ORDERED: TRILAFON16 MG PO (15:42)
[2018-07-27] MEDS ORDERED: RISPERDAL2 M1 PO (15:43)
[2018-08-03] MEDS ORDERED: MIRTAZAPINE15 M2 PO (08:28)
[2018-08-03] MEDS ORDERED: OLANZAPINE5 MG PO ×2 (08:28)
[2018-08-03] MEDS ORDERED: ATARAX,VISTARIL50 MG PO (08:28)
[2018-08-03] MEDS ORDERED: RIVASTIGMINE1 EACH T (08:28)
== END 2018-07-14 21:14 | disposition home or self-care (01) ==
LOC: ED 12:06
PROVIDERS: Emergency Medicine
DX: F20.9 Schizophrenia, unspecified (principal); K21.9 Gastro-esophageal reflux disease without esophagitis; I12.9 Hypertensive chronic kidney disease with stage 1 through stage 4 chronic kidney disease, or unspecified chronic kidney disease; N18.3 Chronic kidney disease, stage 3 (moderate); F31.9 Bipolar disorder, unspecified; M81.0 Age-related osteoporosis without current pathological fracture; Z88.6 Allergy status to analgesic agent; Z88.2 Allergy status to sulfonamides; Z79.899 Other long term (current) drug therapy

== ENCOUNTER 2020-07-18 18:26 | Inpatient (IN) | payer MEDICAID ==
[~2020-07-18] VITALS: Ht 156.4 cm; Wt 85.4 kg
[~2020-07-18 18:26] MED LIST changes: +ATARAX,VISTARIL50 MG PO; +RISPERDAL2 M1 PO; +RIVASTIGMINE1 EACH T; +TRILAFON16 MG PO
[2020-07-18 18:28] VITALS: BP 120/53
[2020-07-18 18:54] LABS: BASO % 0.3 % (0.0-1.0); EOS % 0.2 % (1.0-4.0); HEMATOCRIT 38.7 % (37.0-47.0); LYMPH # 3.4 10*3/uL (1.3-4.4); LYMPH % 36.6 % (27.0-41.0); MEAN CELL VOLUME 89.4 fl (81.0-99.0); MEAN CORPUSCULAR HGB 29.3 pg (27.0-31.0); MEAN CORPUSCULAR HGB CONC 32.8 g/dl (33.0-37.0); MEAN PLATELET VOLUME 9.4 fl (9.6-12.3); MONO # 0.9 10*3/uL (0.1-1.0); MONO % 10.2 % (3.0-9.0); NEUT # 4.8 10*3/uL (2.3-7.9); NEUT % 52.4 % (47.0-73.0); PLATELET COUNT AUTOMATED 270 10*3/uL (130-400); RED BLOOD COUNT 4.33 10*6/uL (4.10-5.10); RED CELL DISTRI WIDTH 13.2 % (0-14.5); WHITE BLOOD COUNT 9.2 10*3/uL (4.8-10.8)
[2020-07-18 19:04] LABS: ACT PARTIAL THROMBO TIME 24.8 SECONDS (20.0-32.1); INTERNATIONAL NORM RATIO 0.9 (2.0-3.5)
[2020-07-18 19:10] LABS: ALBUMIN 3.4 gm/dl (3.1-4.5); ALKALINE PHOSPHATASE 94 U/L (45-117); BUN 10 mg/dl (7-24); CHLORIDE 105 mmol/L (98-107); CREATININE 1.01 mg/dL (0.55-1.02); ETHYL ALCOHOL < 3.0 mg/dl (<3); POTASSIUM 3.5 mmol/L (3.5-5.1); SGOT/AST 15 IU/L (3-35); SGPT/ALT 28 U/L (12-78); SODIUM 140 mmol/L (136-145); TOTAL PROTEIN 7.3 gm/dL (6.4-8.2)
[2020-07-18 19:14] LABS: TROPONIN I < 0.015 ng/ml (<0.045)
[2020-07-18 19:17] LABS: BILIRUBIN Negative (Negative); BLOOD Negative (Negative); CLARITY Clear (Clear); COLOR Yellow (Yellow); GLUCOSE Negative (Negative); KETONE Negative (Negative); LEUKO ESTERASE Trace (Negative); NITRITE Negative (Negative); PH 5.5 (4.5-8.0); SPECIFIC GRAVITY <= 1.005 (1.001-1.030); UROBILINOGEN 0.2 E.U./dl (0.0-1.0)
[2020-07-18 19:26] LABS: BACTERIA 1+; RBC 0-2 rbc/hpf (0-2)
[2020-07-18 21:52] LABS: CHOLESTEROL 167 mg/dL (<200); HDL CHOLESTEROL 93 mg/dl (40-60); LDL CHOLESTEROL 56 mg/dL (9-159); TRIGLYCERIDES 90 mg/dl (<150); VLDL CHOLESTEROL 18 mg/dL (6-40)
[2020-07-18 22:22] VITALS: BP 130/67
[2020-07-18] MEDS ORDERED: XANAX0.5 MG PO (23:42)
[2020-07-18] MEDS ORDERED: RIVASTIGMINE TAR6 M1 PO (23:48)
[2020-07-18] MEDS ORDERED: NAMENDA10 MG PO (23:52)
[2020-07-18] MEDS ORDERED: GEODON80 MG PO (23:56)
[2020-07-19] MEDS ORDERED: CLARITIN10 MG PO (00:13)
[2020-07-19] MEDS ORDERED: LASIX20 MG PO (00:38)
[2020-07-19] MEDS ORDERED: TRINTELLIX20 MG PO (00:39)
[2020-07-19] MEDS ORDERED: ARNUITY ELLIPT50 MCG NAS (00:41)
[2020-07-19] MEDS ORDERED: CRANBERRY CONC1 EACH PO (00:45)
[2020-07-19 07:59] VITALS: BP 153/82
[2020-07-19 08:47] LABS: VITAMIN D, 25-HYDROXY 69.5 ng/mL (30-100)
[2020-07-19 20:00] VITALS: BP 117/51
[2020-07-20 07:40] VITALS: BP 130/75
[2020-07-20 20:00] VITALS: BP 134/81
[2020-07-21 07:07] LABS: BUN 12 mg/dl (7-24); CHLORIDE 104 mmol/L (98-107); CREATININE 1.03 mg/dL (0.55-1.02); POTASSIUM 3.4 mmol/L (3.5-5.1); SODIUM 139 mmol/L (136-145)
[2020-07-21 07:23] VITALS: BP 147/71
[2020-07-21 20:00] VITALS: BP 126/62
[2020-07-22 07:41] VITALS: BP 142/70
[2020-07-22 20:00] VITALS: BP 131/54
[2020-07-23 07:42] VITALS: BP 129/82
[2020-07-23 10:45] LABS: BASO % 0.2 % (0.0-1.0); EOS % 0.1 % (1.0-4.0); HEMATOCRIT 44.1 % (37.0-47.0); LYMPH # 3.5 10*3/uL (1.3-4.4); LYMPH % 26.1 % (27.0-41.0); MEAN CELL VOLUME 89.8 fl (81.0-99.0); MEAN CORPUSCULAR HGB 28.9 pg (27.0-31.0); MEAN CORPUSCULAR HGB CONC 32.2 g/dl (33.0-37.0); MEAN PLATELET VOLUME 9.5 fl (9.6-12.3); MONO # 1.3 10*3/uL (0.1-1.0); MONO % 9.2 % (3.0-9.0); NEUT # 8.7 10*3/uL (2.3-7.9); NEUT % 64.2 % (47.0-73.0); PLATELET COUNT AUTOMATED 368 10*3/uL (130-400); RED BLOOD COUNT 4.91 10*6/uL (4.10-5.10); RED CELL DISTRI WIDTH 13.5 % (0-14.5); WHITE BLOOD COUNT 13.6 10*3/uL (4.8-10.8)
[2020-07-23 16:19] LABS: BILIRUBIN Negative (Negative); BLOOD Negative (Negative); CLARITY Cloudy (Clear); COLOR Yellow (Yellow); GLUCOSE Negative (Negative); KETONE Trace (Negative); LEUKO ESTERASE 3+ (Negative); NITRITE Negative (Negative); PH 5.5 (4.5-8.0)
[2020-07-23 16:24] LABS: RBC 0-2 rbc/hpf (0-2); WBC TNTC wbc/hpf (0-5)
[2020-07-23 16:25] LABS: BACTERIA 1+; CALCIUM OXALATE CRYSTALS 1+
[2020-07-23 20:00] VITALS: BP 119/79
[2020-07-24 06:58] LABS: BASO % 0.4 % (0.0-1.0); EOS % 0.1 % (1.0-4.0); LYMPH # 2.5 10*3/uL (1.3-4.4); LYMPH % 29.4 % (27.0-41.0); MEAN CELL VOLUME 90.3 fl (81.0-99.0); MEAN CORPUSCULAR HGB 29.5 pg (27.0-31.0); MEAN CORPUSCULAR HGB CONC 32.7 g/dl (33.0-37.0); MEAN PLATELET VOLUME 9.6 fl (9.6-12.3); MONO # 0.9 10*3/uL (0.1-1.0); MONO % 10.2 % (3.0-9.0); NEUT % 59.7 % (47.0-73.0); PLATELET COUNT AUTOMATED 314 10*3/uL (130-400); RED BLOOD COUNT 4.54 10*6/uL (4.10-5.10); RED CELL DISTRI WIDTH 13.6 % (0-14.5); WHITE BLOOD COUNT 8.4 10*3/uL (4.8-10.8)
[2020-07-24 07:14] LABS: CHOLESTEROL 175 mg/dL (<200); HDL CHOLESTEROL 96 mg/dl (40-60); LDL CHOLESTEROL 63 mg/dL (9-159); TRIGLYCERIDES 78 mg/dl (<150); VLDL CHOLESTEROL 16 mg/dL (6-40)
[2020-07-24 07:51] VITALS: BP 135/73
[2020-07-24 20:00] VITALS: BP 119/64
[2020-07-25 07:42] VITALS: BP 120/68
[2020-07-25 20:00] VITALS: BP 118/61
[2020-07-26 07:35] VITALS: BP 120/70
[2020-07-26 20:00] VITALS: BP 126/69
[2020-07-27 07:56] VITALS: BP 147/82
[2020-07-27 19:03] VITALS: BP 124/63
[2020-07-28 07:52] VITALS: BP 121/60
[2020-07-28 20:00] VITALS: BP 117/56
[2020-07-29 07:22] VITALS: BP 124/71
[2020-07-29 19:01] VITALS: BP 109/53
[2020-07-30 07:08] VITALS: BP 108/50
[2020-07-30 09:12] VITALS: BP 136/64
[2020-07-30 20:00] VITALS: BP 127/55
[2020-07-31 06:48] LABS: BASO % 0.4 % (0.0-1.0); EOS # 0.1 10*3/uL (0.0-0.4); EOS % 1.5 % (1.0-4.0); HEMATOCRIT 42.8 % (37.0-47.0); LYMPH # 3.7 10*3/uL (1.3-4.4); LYMPH % 45.8 % (27.0-41.0); MEAN CELL VOLUME 91.3 fl (81.0-99.0); MEAN CORPUSCULAR HGB 29.6 pg (27.0-31.0); MEAN CORPUSCULAR HGB CONC 32.5 g/dl (33.0-37.0); MEAN PLATELET VOLUME 9.7 fl (9.6-12.3); MONO # 0.7 10*3/uL (0.1-1.0); MONO % 8.2 % (3.0-9.0); NEUT # 3.6 10*3/uL (2.3-7.9); NEUT % 43.7 % (47.0-73.0); PLATELET COUNT AUTOMATED 327 10*3/uL (130-400); RED BLOOD COUNT 4.69 10*6/uL (4.10-5.10); RED CELL DISTRI WIDTH 13.5 % (0-14.5); WHITE BLOOD COUNT 8.2 10*3/uL (4.8-10.8)
[2020-07-31] MEDS ORDERED: CLOZAPINE100 MG PO (07:31)
[2020-07-31] MEDS ORDERED: MEMANTINE HCL10 MG PO (07:31)
[2020-07-31] MEDS ORDERED: CLOZAPINE25 MG PO (07:31)
[2020-07-31] MEDS ORDERED: CLONAZEPAM0.5 M2 PO (07:31)
[2020-07-31 08:16] VITALS: BP 138/78
== END 2020-07-31 13:22 | DRG 751 ==
LOC: ED 18:26 → 3N 22:19
PROVIDERS: Emergency Medicine; Internal Medicine; Psychiatry & Neurology Psychiatry; ADMIT Psychiatry & Neurology Psychiatry; ATTEND Psychiatry & Neurology Psychiatry
DX: F23 Brief psychotic disorder (principal); M81.0 Age-related osteoporosis without current pathological fracture; N18.30 Chronic kidney disease, stage 3 unspecified; F41.9 Anxiety disorder, unspecified; E55.9 Vitamin D deficiency, unspecified; R73.03 Prediabetes; Z20.822 Contact with and (suspected) exposure to COVID-19; I12.9 Hypertensive chronic kidney disease with stage 1 through stage 4 chronic kidney disease, or unspecified chronic kidney disease; K21.9 Gastro-esophageal reflux disease without esophagitis; R41.9 Unspecified symptoms and signs involving cognitive functions and awareness; Z88.2 Allergy status to sulfonamides; Z88.6 Allergy status to analgesic agent; Z90.710 Acquired absence of both cervix and uterus; Z90.49 Acquired absence of other specified parts of digestive tract; Z80.41 Family history of malignant neoplasm of ovary; Z82.5 Family history of asthma and other chronic lower respiratory diseases